=== PATIENT | female | born 1980 | race Caucasian/White ===

== ENCOUNTER 2016-09-10 17:25 | Emergency (ER) | payer MEDICAID ==
--- NOTE | 2016-09-10 18:18 | EDM.PDOC ---
ED HPI Behavioral Health - General Chief Complaint: Drug or Alcohol Abuse Stated Complaint: OVERDOSE Time Seen by Provider: 09/10/16 17:25 Source of Information: Reports: Patient, EMS, Police Exam Limitations: Reports: No limitations - History of Present Illness INITIAL COMMENTS - FREE TEXT/NARRATIVE: Patient presents, via ambulance and police, with report of taking too much Clonazepam. She usually takes one 1 mg tablet at night to sleep but has been having so much trouble getting sleep that she took 3-4 tablets three hours ago ( 3:00 pm) when she got home from work and a few more 1-1.5 hours later when she still wasn't sleeping. Altogether, she thinks she took 10 tablets. She then called her mother saying she didn't think she should be alone to sleep with that much Clonazepam. Her mother called 911 and she was brought in. She has been awake and alert. She denies any thought or intent to harm herself and insists she just wants to sleep. She started Citalopram 10 mg this morning for depression; I saw her in clinic yesterday for depression and discussed her case with her PCP and initiated Citalopram. She denied any thoughts of self harm on the depression questionaire yesterday as well. She also told the police and EMS that she doesn't want to she just wants to get some sleep. 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 ovarian cysts Psychiatric History: Reports: Depression Hematologic History: Reports: Anemia, Blood transfusion(s) - Past Surgical History Head Surgeries/Procedures: Reports: None Respiratory Surgical History: Reports: None GI Surgical History: Reports: Appendectomy, Cholecystectomy Female Surgical History: Reports: section, D&C Social & Family History - Family History Family Medical History: Noncontributory - Tobacco Use Smoking Status *Q: Current Every Day Smoker Years of Tobacco use: 10 Packs/Tins Daily: 0.5 Used Tobacco, but Quit: No Month Tobacco Last Used: September Second Hand Smoke Exposure: No - Caffeine Use Caffeine Use: Reports: Energy drinks - Alcohol Use Days Per Week of Alcohol Use: 0 - Recreational Drug Use Recreational Drug Use: No - Living Situation & Occupation Living situation: Reports: with family Occupation: employed ED ROS GENERAL - Review of Systems Review Of Systems: See Below Constitutional: Denies: fever HEENT: Reports: No symptoms Respiratory: Denies: Shortness of Breath, Wheezing, Cough Cardiovascular: Denies: Chest pain, Syncope GI/Abdominal: Denies: Abdominal pain, Diarrhea, Vomiting : Reports: no symptoms Musculoskeletal: Reports: no symptoms Skin: Reports: no symptoms Neurological: Denies: Confusion, Dizziness, Headache, Seizure, Syncope, Trouble Speaking Psychiatric: Denies: Agitation, Anxiety, Confusion ED EXAM, BEHAVIORAL HEALTH - Physical Exam Exam: See Below Exam Limited By: No limitations General Appearance: alert, WD/WN, no apparent distress Eye Exam: bilateral eye: EOMI, normal inspection, PERRL Ears: normal external exam, hearing grossly normal Nose: normal inspection Throat/Mouth: Normal inspection, Normal lips, Normal voice, No airway compromise Head: atraumatic, normocephalic Neck: full range of motion Respiratory/Chest: no respiratory distress, lungs clear, normal breath sounds, no accessory muscle use Cardiovascular: regular rate, rhythm, no murmur Extremities: normal range of motion Neurological: alert, normal mood/affect, CN II-XII intact, normal cognition, no motor/sensory deficits, oriented x 3 Psychiatric: normal cognition, oriented, depressed mood. No: incoherent, inattentive, non-communicative, poor eye contact, uncooperative, homicidal thoughts, suicidal plan, suicidal thoughts, grandiose thoughts, threatening behavior Skin Exam: Warm, Dry, Intact, Normal color, No rash COURSE, BEHAVIORAL HEALTH COMP - Course Vital Signs: Last Vital Signs Temp 96.1 F 09/10/16 17:28 Pulse 84 09/10/16 17:28 Resp 16 09/10/16 17:28 BP 135/70 09/10/16 17:28 Pulse Ox 100 09/10/16 17:28 Orders, Labs, Meds: Active Orders 24 hr Category Date Time Status DRUG SCREEN, URINE [URCHEM] Stat Lab 09/10/16 17:52 Uncollected Re-Assessment/Re-Exam: I discussed with Ethan Rhoades who confirmed that we shouldn't reverse with Flumazenil because of seizure risks. Called poison control and was informed that the peak effect is 5 hours so should be monitored for that time period. Patient is alert, awake and breathing normally and independently with sats 98% on RA. Patient consistently denies any intent to harm herself. Aliyah, who determines the necessity of admission for the [facility], talked over the phone at length with the patient, her mother, the commissioned police officer and then summarized her decision and the plan with me. She will stay with her mother over the weekend, follow up with her PCP and have phone numbers to contact the [facility] if anything psychologically worsens or she needs advice or direction. Patient has been monitored past the 5-hour point and is stable. No breathing problems. She is tired and feels ready to go home where she will spend the weekend with her mom. Pt discharged in stable condition. Departure - Departure Time of Disposition: 21:41 Disposition: Home, Self-Care 01 Condition: good Clinical Impression: Benzodiazepine (tranquilizer) overdose Qualifiers: Encounter type: initial encounter Injury intent: accidental or unintentional Qualified Code(s): T42.4X1A - Poisoning by benzodiazepines, accidental ( unintentional), initial encounter Additional Instructions: 1. Continue your Citalopram and Clonazepam as directed but no extra doses. 2. Follow the plan as you discussed with Aliyah from Behavioral Health at the [facility]. 3. Call the numbers she provided for you if you need help or advice as she directed. 4. Follow up with Dr. Maier; call Tuesday for appointment next week. 5. Return to ER if problems or concerns before you can get in to see Dr. Maier. - My Orders Last 24 Hours: My Active Orders 09/10/16 17:52 DRUG SCREEN, URINE [URCHEM] Stat - Assessment/Plan Last 24 Hours: My Active Orders 09/10/16 17:52 DRUG SCREEN, URINE [URCHEM] Stat
[2016-09-10 18:51] LABS: CHLORIDE,CL 103 mmol/L (98-115); SODIUM,NA 139 mmol/L (136-145)
[2016-09-10 18:52] LABS: ACETAMINOPHEN < 10.0 ug/mL (10.0-30.0)
[2016-09-11 02:27] VITALS: BP 126/59
== END 2016-09-10 22:00 | disposition home or self-care (01) ==
LOC: KA.ED 17:25
DX: T42.4X1A Poisoning by benzodiazepines, accidental (unintentional), initial encounter (principal); F32.9 Major depressive disorder, single episode, unspecified; F17.210 Nicotine dependence, cigarettes, uncomplicated; Z79.899 Other long term (current) drug therapy
CPT/HCPCS: 36415; 80048; 80305; 85025; 99285; G0480

== ENCOUNTER 2016-09-12 21:39 | Inpatient (IN) | payer MEDICAID ==
[2016-09-12] MEDS ORDERED: Ondansetron 4 MG/2 ML SDV IVPUSH ONE (22:15)
[2016-09-12] MEDS ORDERED: Sodium Chloride 0.9% 1,000 ML IV ONE (22:16)
--- NOTE | 2016-09-12 22:22 | EDM.PDOC ---
ED HPI GENERAL MEDICAL PROBLEM - General Chief Complaint: General Stated Complaint: POSSIBLE OD?? Time Seen by Provider: 09/12/16 22:05 Source of Information: Reports: Patient, Family (mother), Police History Limitations: Reports: No limitations - History of Present Illness INITIAL COMMENTS - FREE TEXT/NARRATIVE: PT WAS SEEN HERE ON 09/10/16 FOR SUSPECTED DRUG OVERDOSE OF CLONAZEPAM. SHE TYPICALLY TAKES THIS MEDICATION FOR SLEEP. NOT ADMITTED OR TRANSFERRED AT THAT TIME AND RELEASED HOME UNDER CARE OF MOTHER. CASE WAS DISCUSSED WITH REP FROM [facility] BUT NO ACTION WAS TAKEN. PT PRESENTS TODAY WITH DIZZINESS AND LETHARGY. ADMITS TO TAKING 7 MORE PILLS LAST NIGHT TO TRY AND SLEEP. DENIES ETOH, SOCIAL DRUGS, OR ANY OTHER MEDICATION. STATES HER FATHER LAST YEAR AND SHE IS DEPRESSED. DENIES INTENT TO HURT SELF TO ME, HOWEVER DID TELL THE AGRICULTURE LABORER SHE WANTED TO BE WITH HER FATHER. 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 ovarian cysts Psychiatric History: Reports: Depression Hematologic History: Reports: Anemia, Blood transfusion(s) - Past Surgical History Head Surgeries/Procedures: Reports: None Respiratory Surgical History: Reports: None GI Surgical History: Reports: Appendectomy, Cholecystectomy Female Surgical History: Reports: section, D&C Social & Family History - Family History Family Medical History: Noncontributory - Tobacco Use Smoking Status *Q: Current Every Day Smoker Years of Tobacco use: 10 Packs/Tins Daily: 0.5 Used Tobacco, but Quit: No Month Tobacco Last Used: September Second Hand Smoke Exposure: No - Caffeine Use Caffeine Use: Reports: Energy drinks - Alcohol Use Days Per Week of Alcohol Use: 0 - Recreational Drug Use Recreational Drug Use: No - Living Situation & Occupation Living situation: Reports: with family Occupation: employed ED ROS GENERAL - Review of Systems Review Of Systems: ROS reveals no pertinent complaints other than HPI. Constitutional: Reports: weakness HEENT: Reports: No symptoms Respiratory: Reports: No Symptoms Cardiovascular: Reports: No symptoms Endocrine: Reports: no symptoms GI/Abdominal: Reports: Nausea : Reports: no symptoms Musculoskeletal: Reports: no symptoms Skin: Reports: no symptoms Neurological: Reports: Dizziness. Denies: Headache, Trouble Speaking, Difficulty Walking, Change in Speech Psychiatric: Reports: Depression Hematologic/Lymphatic: Reports: no symptoms Immunologic: Reports: no symptoms ED EXAM, GENERAL - Physical Exam Exam: See Below Exam Limited By: No limitations General Appearance: alert, WD/WN, no apparent distress Eye Exam: bilateral eye: normal inspection Throat/Mouth: Normal inspection, Normal oropharynx, No airway compromise Head: atraumatic, normocephalic Respiratory/Chest: no respiratory distress, lungs clear, normal breath sounds, no accessory muscle use, chest non-tender Cardiovascular: regular rate, rhythm, no murmur GI/Abdominal: normal bowel sounds, soft, non tender Extremities: normal inspection, no pedal edema Neurological: alert, oriented, CN II-XII intact, normal cognition, no motor/ sensory deficits Psychiatric: depressed mood Skin Exam: Warm, Dry, Intact, Normal color, No rash Lymphatic: no adenopathy Course - Vital Signs Last Recorded V/S: Last Vital Signs Temp 97.8 F 09/12/16 21:48 Pulse 95 09/12/16 21:48 Resp 16 09/12/16 21:48 BP 132/84 09/12/16 21:48 Pulse Ox 97 09/12/16 21:48 - Orders/Labs/Meds Orders: Active Orders 24 hr Category Date Time Status CBC WITH AUTO DIFF [HEME] Stat Lab 09/12/16 22:06 Ordered COMPREHENSIVE METABOLIC PN,CMP [CHEM] Stat Lab 09/12/16 22:06 Ordered DRUG SCREEN, URINE [URCHEM] Stat Lab 09/12/16 22:10 Uncollected HCG QUANTITATIVE,SERUM [CHEM] Stat Lab 09/12/16 22:10 Ordered UA W/MICROSCOPIC [URIN] Stat Lab 09/12/16 22:06 Uncollected Ondansetron [Zofran] Med 09/12/16 22:15 Once 4 mg IVPUSH ONETIME ONE Sodium Chloride 0.9% @ 999 MLS/HR (1000ml) Med 09/12/16 22:16 Ordered Sodium Chloride 0.9% [Normal Saline] 1,000 ml IV .BOLUS - Re-Assessments/Exams Free Text/Narrative Re-Assessment/Exam: 09/12/16 23:03 PT AFEBRILE, VSS, NONTOXIC APPEARING, NOT THREATENING TO INJURE SELF. NO BEDS AVAIL AT STATE FACILITY. WILL ADMIT AND DISCUSS CASE WITH YARD BRAKEMAN AND DR Lissy ROBLERO IN AM. Departure - Departure Time of Disposition: 23:04 Disposition: Admitted As Inpatient 66 Condition: good Clinical Impression: Depression Forms: ED Department Discharge - My Orders Last 24 Hours: My Active Orders 09/12/16 22:06 CBC WITH AUTO DIFF [HEME] Stat COMPREHENSIVE METABOLIC PN,CMP [CHEM] Stat UA W/MICROSCOPIC [URIN] Stat 09/12/16 22:10 DRUG SCREEN, URINE [URCHEM] Stat HCG QUANTITATIVE,SERUM [CHEM] Stat 09/12/16 22:15 Ondansetron [Zofran] 4 mg IVPUSH ONETIME ONE 09/12/16 22:16 Sodium Chloride 0.9% @ 999 MLS/HR (1000ml) Sodium Chloride 0.9% [Normal Saline] 1,000 ml IV .BOLUS - Assessment/Plan Last 24 Hours: My Active Orders 09/12/16 22:06 CBC WITH AUTO DIFF [HEME] Stat COMPREHENSIVE METABOLIC PN,CMP [CHEM] Stat UA W/MICROSCOPIC [URIN] Stat 09/12/16 22:10 DRUG SCREEN, URINE [URCHEM] Stat HCG QUANTITATIVE,SERUM [CHEM] Stat 09/12/16 22:15 Ondansetron [Zofran] 4 mg IVPUSH ONETIME ONE 09/12/16 22:16 Sodium Chloride 0.9% @ 999 MLS/HR (1000ml) Sodium Chloride 0.9% [Normal Saline] 1,000 ml IV .BOLUS Assessment:: DEPRESSION Plan: ADMIT
[2016-09-12 22:53] LABS: CHLORIDE,CL 105 mmol/L (98-115); SODIUM,NA 142 mmol/L (136-145)
[2016-09-12] MEDS ORDERED: Sodium Chloride 0.9% 5 ML Syringe FLUSH PRN (23:00)
[2016-09-12] MEDS ORDERED: Ondansetron 4 MG Tab.DIS PO PRN (23:00)
[2016-09-13] MEDS: Nicotine 14 MG/24 Hr Patch TRDERM SCH ×2 (00:06→10:46)
[2016-09-13] MEDS ORDERED: Acetaminophen 325 MG Tab PO PRN (05:37)
[2016-09-13] MEDS ORDERED: Sodium Chloride 0.9% 1,000 ML IV SCH (05:45)
--- NOTE | 2016-09-13 09:11 | PCM.PN ---
- General Info Date of Service: 09/13/16 Admission Dx/Problem (Free Text): Overdose - Review of Systems Systems Review Comment:: Stacie was admitted last evening after taking too many clonazepam within 28 hours. She was seen in the ER on 09/10/16 after taking too many of her 0.5 mg clonazepam (10 per ER note) and she took another 7 last evening stating "I just wanted to go to sleep". She has had increased depression lately with the anniversary of her father's approaching. She was very involved in his care as he was very ill at the end. She states she has had increased trouble sleeping and has used clonazepam successfully in the past to help her sleep. When she was seen on 09/10 she did reportedly have an intake assessment done, I believe it was with the [facility], and they did not feel she was a harm to herself and she was discharged home to the care of her mother. She largely slept most of the day but then wanted to fall asleep again and could not and so that is when she took an additional 7 clonazepam. Her mother became worried about her and called law enforcement, who came out with the ambulance. They did not feel ambulance transport was necessary so she came by private vehicle to the ER for additional evaluation. Today she feels dizzy, nauseated, a little lightheaded. She states "I couldn't walk a straight line if you asked me to". She is able to answer questions but often has her eyes closed. Urine drug screen was negative for any other substances besides benzo's. She has no CP or SOB. - Patient Data Vitals - most recent: Last Vital Signs Temp 97 F 09/13/16 06:42 Pulse 79 09/13/16 06:42 Resp 18 09/13/16 06:42 BP 125/86 09/13/16 06:42 Pulse Ox 97 09/13/16 07:20 Weight - most recent: 216 lb 6.4 oz I&O - last 24 hours: Intake & Output 09/12/16 09/13/16 09/13/16 22:59 06:59 14:59 Intake Total 1300 Balance 1300 Med Orders - Current: Current Medications Acetaminophen (Tylenol) 650 mg PO Q6H PRN PRN Reason: Headache/Pain Last Admin: 09/13/16 05:54 Dose: 650 mg Sodium Chloride (Normal Saline) 1,000 mls @ 125 mls/hr IV ASDIRECTED [facility] Last Admin: 09/13/16 05:51 Dose: 125 mls/hr Nicotine (Habitrol) 14 mg TRDERM DAILY [facility] Last Admin: 09/13/16 00:06 Dose: 14 mg Ondansetron HCl (Zofran Odt) 4 mg PO Q6H PRN PRN Reason: nausea, able to take PO Last Admin: 09/13/16 02:53 Dose: 4 mg Sodium Chloride (Syrex Flush) 5 ml FLUSH Q8HR PRN PRN Reason: Keep Vein Open Last Admin: 09/13/16 05:56 Dose: 5 ml Discontinued Medications Sodium Chloride (Normal Saline) 1,000 mls @ 999 mls/hr IV .BOLUS ONE Stop: 09/12/16 23:16 Last Admin: 09/12/16 22:21 Dose: 999 mls/hr Ondansetron HCl (Zofran) 4 mg IVPUSH ONETIME ONE Stop: 09/12/16 22:16 Last Admin: 09/12/16 22:24 Dose: 4 mg - Exam General: oriented, cooperative, no acute distress, other (Sleepy, has a hard time keeping her eyes open.) Lungs: Clear to auscultation, Normal respiratory effort Cardiovascular: Regular Rate, Regular Rhythm, No Murmurs Abdomen: bowel sounds present - Problem List & Annotations (1) Depression SNOMED Code(s): 18817830 Code(s): F32.9 - MAJOR DEPRESSIVE DISORDER, SINGLE EPISODE, UNSPECIFIED Status: Acute Current Visit: Yes Qualifiers: Depression Type: major depressive disorder Active/Remission status: currently active Psychotic features: without psychotic features (2) Benzodiazepine (tranquilizer) overdose SNOMED Code(s): 319565286 Code(s): T42.4X1A - POISONING BY BENZODIAZEPINES, ACCIDENTAL, INIT Status: Acute Current Visit: No Qualifiers: Encounter type: subsequent encounter Injury intent: accidental or unintentional Qualified Code(s): T42.4X1D - Poisoning by benzodiazepines, accidental (unintentional), subsequent encounter - Problem List Review Problem List Initiated/Reviewed/Updated: Yes - Assessment Assessment:: I am working with our social services aide, Rufino Norman, to help find a place for her to have a face to face mental health evaluation. While this morning she said she is suicidal, when I questioned her more about this and her statement that " I just want to go be with my dad" who has . She becomes tearful and states "that is what I said". Her mother also questioned her about this and told me that Stacie said to her that "I know my girls will be well taken care of" . She needs additional psychiatric evaluation with possible inpatient treatment vs. partial hospitalization. Patient was amenable to this, her mother is also OK with this and is able to care for her children if she would need to be admitted at a different facility. Her depression is so severe and with her taking an overdose within 48 hours of her initial event I feel she is not safe to return to her home environment as this happened with her mother keeping watch over her.
--- NOTE | 2016-09-13 11:17 | PCM.DCSUM1 ---
Discharge Summary - Hospital Course Free Text/Narrative:: Stacie was admitted last evening after taking too many clonazepam within 28 hours. She was seen in the ER on 09/10/16 after taking too many of her 0.5 mg clonazepam (10 per ER note) and she took another 7 last evening stating "I just wanted to go to sleep". She has had increased depression lately with the anniversary of her father's approaching. She was very involved in his care as he was very ill at the end. She states she has had increased trouble sleeping and has used clonazepam successfully in the past to help her sleep. When she was seen on 09/10 she did reportedly have an intake assessment done, I believe it was with the [facility], and they did not feel she was a harm to herself and she was discharged home to the care of her mother. She largely slept most of the day but then wanted to fall asleep again and could not and so that is when she took an additional 7 clonazepam. Her mother became worried about her and called law enforcement, who came out with the ambulance. They did not feel ambulance transport was necessary so she came by private vehicle to the ER for additional evaluation. Today she feels dizzy, nauseated, a little lightheaded. She states "I couldn't walk a straight line if you asked me to". She is able to answer questions but often has her eyes closed. Urine drug screen was negative for any other substances besides benzo's. She has no CP or SOB. Social work was able to assist with getting her an evaluation at [facility] ER with Dr. Burleson as the accepting provider. Note were faxed to him. Patient is going to leave with her mother, who will drive her to [place] to the ER for evaluation. I will write a note excusing her from work at her request. She works at [employer] in [employer]. - Discharge Data Discharge Date: 09/13/16 Discharge Disposition: DC/Tfer to Acute Hospital 02 Condition: Stable - Discharge Diagnosis/Problem(s) (1) Depression SNOMED Code(s): 91004855 ICD Code: F32.9 - MAJOR DEPRESSIVE DISORDER, SINGLE EPISODE, UNSPECIFIED Status: Acute Current Visit: Yes Qualifiers: Depression Type: major depressive disorder Active/Remission status: currently active Psychotic features: without psychotic features (2) Benzodiazepine (tranquilizer) overdose SNOMED Code(s): 599897395 ICD Code: T42.4X1A - POISONING BY BENZODIAZEPINES, ACCIDENTAL, INIT Status : Acute Current Visit: No Qualifiers: Encounter type: subsequent encounter Injury intent: accidental or unintentional Qualified Code(s): T42.4X1D - Poisoning by benzodiazepines, accidental (unintentional), subsequent encounter - Discharge Plan Home Medications: Home Meds Citalopram Hydrobromide [Citalopram HBr] 1 tab PO DAILY 09/10/16 [History] Forms: ED Department Discharge Referrals: Amaury Garcia [Outside] Livier Barnes MD [Primary Care Provider] - - General Info Date of Service: 09/13/16 Admission Dx/Problem (Free Text: Overdose - Review of Systems Systems Review Comment: See HPI. - Patient Data Vitals - Most Recent: Last Vital Signs Temp 97.4 F 09/13/16 11:00 Pulse 85 09/13/16 11:00 Resp 12 09/13/16 11:00 BP 106/64 09/13/16 11:00 Pulse Ox 95 09/13/16 11:00 Weight - Most Recent: 216 lb 6.4 oz I&O - Last 24 hours: Intake & Output 09/12/16 09/13/16 09/13/16 22:59 06:59 14:59 Intake Total 1300 Balance 1300 Med Orders - Current: Current Medications Acetaminophen (Tylenol) 650 mg PO Q6H PRN PRN Reason: Headache/Pain Last Admin: 09/13/16 05:54 Dose: 650 mg Sodium Chloride (Normal Saline) 1,000 mls @ 125 mls/hr IV ASDIRECTED [facility] Last Admin: 09/13/16 05:51 Dose: 125 mls/hr Nicotine (Habitrol) 14 mg TRDERM DAILY [facility] Last Admin: 09/13/16 10:46 Dose: Not Given Ondansetron HCl (Zofran Odt) 4 mg PO Q6H PRN PRN Reason: nausea, able to take PO Last Admin: 09/13/16 02:53 Dose: 4 mg Sodium Chloride (Syrex Flush) 5 ml FLUSH Q8HR PRN PRN Reason: Keep Vein Open Last Admin: 09/13/16 05:56 Dose: 5 ml Discontinued Medications Sodium Chloride (Normal Saline) 1,000 mls @ 999 mls/hr IV .BOLUS ONE Stop: 09/12/16 23:16 Last Admin: 09/12/16 22:21 Dose: 999 mls/hr Ondansetron HCl (Zofran) 4 mg IVPUSH ONETIME ONE Stop: 09/12/16 22:16 Last Admin: 09/12/16 22:24 Dose: 4 mg - Exam General: Reports: oriented, cooperative, other (Sleepy) Lungs: Reports: Clear to auscultation, Normal respiratory effort Cardiovascular: Reports: Regular Rate, Regular Rhythm, No Murmurs *Q Meaningful Use (DIS) - VTE *Q VTE Criteria *Q: - Stroke *Q Stroke Criteria *Q: - AMI *Q AMI Criteria *Q:
[2016-09-13 11:18] VITALS: BP 106/64
== END 2016-09-13 12:00 | DRG 918 ==
LOC: KA.ED 21:39 → KA.MS 22:54
PROVIDERS: ADMIT Physician Assistant Surgical; ATTEND Internal Medicine
DX: T42.4X1A Poisoning by benzodiazepines, accidental (unintentional), initial encounter (principal); R45.851 Suicidal ideations; Y92.019 Unspecified place in single-family (private) house as the place of occurrence of the external cause; F32.9 Major depressive disorder, single episode, unspecified; F17.200 Nicotine dependence, unspecified, uncomplicated; Z79.899 Other long term (current) drug therapy
CPT/HCPCS: 36415; 80053; 80305; 81001; 84702; 85025; 96361; 96374; 99285; A9270-GY; J2405; J7030

== ENCOUNTER 2016-12-31 09:25 | Emergency (ER) | payer MEDICAID ==
[2016-12-31 09:40] VITALS: BP 89/52
[2016-12-31] MEDS ORDERED: Ondansetron 4 MG Tab.DIS PO ONE (10:20)
[2016-12-31 10:32] LABS: CHLORIDE,CL 105 mmol/L (98-115); SODIUM,NA 141 mmol/L (136-145)
--- NOTE | 2016-12-31 10:37 | EDM.PDOC ---
ED HPI GENERAL MEDICAL PROBLEM - General Chief Complaint: Neurological Problem Stated Complaint: dizziness Time Seen by Provider: 12/31/16 10:10 Source of Information: Reports: Patient History Limitations: Reports: No Limitations - History of Present Illness INITIAL COMMENTS - FREE TEXT/NARRATIVE: Patient presents with low back pain and vertigo after falling at work 2 hours ago. 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 She controlled the fall and wasn't completely unconscious (no loss of bowel/bladder function). She could hear voices of others and was helped by a co-worker. She got up after about 45 seconds and noticed dizziness/spinning along with blurry vision (she describes as objects moving or spinning) with head movement. She denies hitting her head and has no pain except in her low back. She denies back pain or dizziness/spinning prior to the fall at 0800 this morning. 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 ovarian cysts Psychiatric History: Reports: Depression Endocrine/Metabolic History: Reports: Obesity/BMI 30+ Hematologic History: Reports: Anemia, Blood Transfusion(s) - Infectious Disease History Infectious Disease History: Reports: None - Past Surgical History Head Surgeries/Procedures: Reports: None HEENT Surgical History: Reports: Oral Surgery, Tonsillectomy GI Surgical History: Reports: Appendectomy, Cholecystectomy Female Surgical History: Reports: Section, Cystectomy, D&C Endocrine Surgical History: Reports: None Social & Family History - Family History Family Medical History: Noncontributory - Tobacco Use Smoking Status *Q: Current Every Day Smoker Years of Tobacco use: 6 Packs/Tins Daily: 1 Used Tobacco, but Quit: No Month Tobacco Last Used: September Second Hand Smoke Exposure: Yes - Caffeine Use Caffeine Use: Reports: Soda Other Caffeine Use: ice tea and diet coke - Alcohol Use Days Per Week of Alcohol Use: 0 - Recreational Drug Use Recreational Drug Use: No - Living Situation & Occupation Living situation: Reports: with Family Occupation: Employed ED ROS GENERAL - Review of Systems Review Of Systems: See Below Constitutional: Denies: Fever, Chills, Weakness HEENT: Reports: Vertigo. Denies: Ear Pain, Hearing Loss (no ringing), Throat Pain Respiratory: Denies: Shortness of Breath, Cough Cardiovascular: Reports: Lightheadedness, Syncope. Denies: Chest Pain, Blood Pressure Problem Endocrine: Denies: Fatigue, Polydypsia, Polyuria GI/Abdominal: Reports: Nausea. Denies: Abdominal Pain, Anorexia, Diarrhea, Difficulty Swallowing, Stool Incontinence, Vomiting : Denies: Dysuria, Flank Pain, Frequency, Incontinence Musculoskeletal: Denies: Neck Pain, Shoulder Pain, Arm Pain Skin: Denies: Cyanosis, Jaundice, Mottled, Pallor, Diaphoresis Neurological: Reports: Dizziness, Syncope. Denies: Confusion, Headache, Numbness, Paresthesia, Pre-Existing Deficit, Seizure, Tingling, Trouble Speaking , Weakness, Change in Speech Psychiatric: Denies: Agitation, Anxiety, Confusion ED EXAM, NEURO - Physical Exam Exam: See Below Exam Limited By: No Limitations General Appearance: Alert, WD/WN, No Apparent Distress Eye Exam: Bilateral Eye: Abnormal EOM (some nystagmus was lateral movement but full motion is present), EOMI, Normal Inspection, Nystagmus, PERRL Ears: Normal External Exam, Normal Canal, Hearing Grossly Normal, Normal TMs Nose: Normal Inspection, No Blood Throat/Mouth: Normal Inspection, Normal Lips, Normal Oropharynx, Normal Voice, No Airway Compromise Head Exam: Atraumatic, Normocephalic Neck: Normal Inspection, Supple, Non-Tender, Full Range of Motion Respiratory/Chest: No Respiratory Distress, Lungs Clear, Normal Breath Sounds, No Accessory Muscle Use Cardiovascular: Normal Peripheral Pulses, Regular Rate, Rhythm, No Edema, No Gallop, No Murmur GI/Abdominal: Normal Bowel Sounds, Soft, Non-Tender, No Organomegaly, No Distention Neurological: Alert, Normal Mood/Affect, Normal Dorsiflexion, CN II-XII Intact, Normal Plantar Flexion, No Motor/Sensory Deficits, Oriented x 3, Other ([facility] [place] test is significant in producing vertigo and nystagmus worse to the right.) Back Exam: Full Range of Motion, Paraspinal Tenderness (across the low back hand to palpation; worse on right.). No: CVA Tenderness (L), CVA Tenderness ( R), Vertebral Tenderness Extremities: Normal Inspection, Normal Range of Motion, Non-Tender, No Pedal Edema Psychiatric: Normal Affect, Normal Mood Skin Exam: Warm, Dry, Intact, Normal Color, No Rash Course - Vital Signs Last Recorded V/S: Last Vital Signs Temp 97.5 F 12/31/16 09:34 Pulse 58 L 12/31/16 09:34 Resp 18 12/31/16 09:34 BP 89/52 L 12/31/16 09:34 Pulse Ox 99 12/31/16 09:34 Orthostatic Blood Pressure [ 127/80 Standing] Orthostatic Blood Pressure [ 122/76 Sitting] Orthostatic Blood Pressure [ 108/78 Supine] - Orders/Labs/Meds Orders: Active Orders 24 hr Category Date Time Status EKG Documentation Completion [RC] ASDIRECTED Care 12/31/16 09:51 Active Orthostatic Vital Signs [RC] ASDIRECTED Care 12/31/16 09:56 Active BASIC METABOLIC PANEL,BMP [CHEM] Stat Lab 12/31/16 10:00 Received URINALYSIS W/MICROSCOPIC [UA W/MICROSCOPIC] [URIN] Stat Lab 12/31/16 09:51 Ordered EKG 12 Lead [EK] Routine Ther 12/31/16 09:50 Ordered Labs: Laboratory Tests 12/31/16 12/31/16 Range/Units 09:51 10:00 WBC 7.1 (5.0-10.0) 10^3/uL RBC 4.39 (3.80-5.50) 10^6/uL Hgb 13.2 (12.0-16.0) g/dL Hct 38.1 (37.0-47.0) % MCV 86.9 (82.0-92.0) fL MCH 30.1 (27.0-31.0) pg MCHC 34.7 (32.0-36.0) g/dL RDW 13.1 (11.5-14.5) % Plt Count 224 (150-300) 10^3/uL MPV 8.5 (7.4-10.4) fL Neut % (Auto) 66.8 (50.0-70.0) % Lymph % (Auto) 21.6 (20.0-40.0) % [place] % (Auto) 5.8 (2.0-8.0) % Eos % (Auto) 5.1 H (1.0-3.0) % Baso % (Auto) 0.7 (0.0-1.0) % Neut # (Auto) 4.8 (2.5-7.0) 10^3/uL Lymph # (Auto) 1.5 (1.0-4.0) 10^3/uL [place] # (Auto) 0.4 (0.1-0.8) 10^3/uL Eos # (Auto) 0.4 H (0.1-0.3) 10^3/uL Baso # (Auto) 0.0 (0.0-0.1) 10^3/uL Urine Color Yellow (YELLOW) Urine Appearance Slightly cloudy H (CLEAR) Urine pH 5.5 (5.0-9.0) Ur Specific [place] <= 1.005 (1.005-1.030) Urine Protein Negative (NEGATIVE) mg/dL Urine Glucose (UA) Negative (NEGATIVE) mg/dL Urine Ketones Negative (NEGATIVE) mg/dL Urine Occult Blood Trace-intact H (NEGATIVE) Urine Nitrite Negative (NEGATIVE) Urine Bilirubin Negative (NEGATIVE) Urine Urobilinogen 0.2 (0.2-1.0) E.U./dL Ur Leukocyte Esterase Trace H (NEGATIVE) - Re-Assessments/Exams Free Text/Narrative Re-Assessment/Exam: 12/31/16 11:38 Orthostatic pressures are stable. Patient feeling better after Zofran. Waiting on head CT currently. Discussed Trichomonasis result with pt and will treat for that along with empiric treatment for GC/Chlam today. Tested for GC/ Chlam from urine today and sent out. Results will be sent to Dr. Maier, pt's PCP. I discussed this with Dr. Maier also, with pt's permission. Patient states she has had no sexual contact since June and is no longer in a relationship with that partner. She will inform him of this result and recommendation that he get tested. Pt will discuss further STD testing with her PCP next week. Patient denies any vaginal drainage, lesions, pain or any other symptoms now or at any time. She denies any history of STDs. 12/31/16 11:[address] is negative for any acute process. Discussed results with patient and she will return at 1300 for her [employer] Maneuver. Pt's mother will drive her. Patient discharged in stable condition. 12/31/16 11:58 Patient was given info on BPPV prior to discharge. Departure - Departure Time of Disposition: 11:50 Disposition: Home, Self-Care 01 Condition: Good Clinical Impression: Trichomoniasis, urogenital BPPV (benign paroxysmal positional vertigo) Qualifiers: Laterality: right Qualified Code(s): H81.11 - Benign paroxysmal vertigo, right ear Lumbar strain Qualifiers: Encounter type: initial encounter Qualified Code(s): S39.012A - Strain of muscle, fascia and tendon of lower back, initial encounter - Discharge Information Forms: ED Department Discharge Additional Instructions: 1. Avoid driving until the dizziness and vertigo have settle down. 2. Go to PT for Wilbert Maneuver at 1:00 today. 3. Follow up with Dr. Maier next week for test results and to discuss any further testing she recommends. 4. Take Ibuprofen 600mg every 8 hours as needed for the back pain. Wait at least 12 hours after the Toradol in ER to begin this. 5. You can take Tylenol 500-650 every 8 hours as needed for the back pain also. 6. Return to ER as needed. - My Orders Last 24 Hours: My Active Orders 12/31/16 09:50 EKG 12 Lead [EK] Routine 12/31/16 09:51 EKG Documentation Completion [RC] ASDIRECTED URINALYSIS W/MICROSCOPIC [UA W/MICROSCOPIC] [URIN] Stat 12/31/16 09:56 Orthostatic Vital Signs [RC] ASDIRECTED 12/31/16 10:00 BASIC METABOLIC PANEL,BMP [CHEM] Stat - Assessment/Plan Last 24 Hours: My Active Orders 12/31/16 09:50 EKG 12 Lead [EK] Routine 12/31/16 09:51 EKG Documentation Completion [RC] ASDIRECTED URINALYSIS W/MICROSCOPIC [UA W/MICROSCOPIC] [URIN] Stat 12/31/16 09:56 Orthostatic Vital Signs [RC] ASDIRECTED 12/31/16 10:00 BASIC METABOLIC PANEL,BMP [CHEM] Stat
[2016-12-31] MEDS ORDERED: Ketorolac 60 MG/2 ML SDV IM ONE (10:40)
[2016-12-31] MEDS ORDERED: Azithromycin 250 MG Tab PO ONE (11:37)
[2016-12-31] MEDS ORDERED: metroNIDAZOLE 500 MG Tab PO ONE (11:37)
== END 2016-12-31 12:00 | disposition home or self-care (01) ==
LOC: KA.ED 09:25
DX: S39.012A Strain of muscle, fascia and tendon of lower back, initial encounter (principal); H81.11 Benign paroxysmal vertigo, right ear; A59.00 Urogenital trichomoniasis, unspecified; F32.9 Major depressive disorder, single episode, unspecified; F17.210 Nicotine dependence, cigarettes, uncomplicated; E66.9 Obesity, unspecified; Z86.2 Personal history of diseases of the blood and blood-forming organs and certain disorders involving the immune mechanism; Z90.49 Acquired absence of other specified parts of digestive tract; Z98.890 Other specified postprocedural states; Z79.899 Other long term (current) drug therapy; X50.0XXA Overexertion from strenuous movement or load, initial encounter; Y99.0 Civilian activity done for income or pay
CPT/HCPCS: 36415; 70450; 80048; 81001; 81025; 85025; 87491; 87591; 93005; 96372; 99284; A9270; J1885

== ENCOUNTER 2017-08-04 09:20 | Observation (INO) | payer BC ==
[2017-08-04] MEDS ORDERED: Nitroglycerin 0.4 MG Tab.SL ONE (09:27)
[2017-08-04] MEDS ORDERED: Aspirin 81 MG Tab.Chew ONE (09:27)
[2017-08-04] MEDS ORDERED: Sodium Chloride 0.9% 5 ML Syringe FLUSH PRN ×2 (09:42→10:25)
[2017-08-04] MEDS: Nitroglycerin 0.4 MG Tab.SL SL PRN ×2 (09:50→10:00)
[2017-08-04] MEDS ORDERED: Aspirin 81 MG Tab.Chew PO ONE (09:57)
--- NOTE | 2017-08-04 10:00 | EDM.PDOC ---
ED HPI GENERAL MEDICAL PROBLEM - General Chief Complaint: Chest Pain Stated Complaint: CP Time Seen by Provider: 08/04/17 09:35 Source of Information: Reports: Patient History Limitations: Reports: No Limitations - History of Present Illness INITIAL COMMENTS - FREE TEXT/NARRATIVE: 36 YO WF presents to ER complaining of left sided chest pain which began 1 hour ago while at work. Pt reports associated lightheadedness. Pt denies any previous history of chest pain. Pt denies diaphoresis, nausea, shortness of breath of nausea/vomiting. Pt denies any recent illness. Pt reports tobacco use 1/2 pack per day. Onset: Today Duration: Hour(s): (1) Location: Reports: Chest Quality: Reports: Pressure Severity: Mild Improves with: Reports: None Worsens with: Reports: None Associated Symptoms: Reports: Chest Pain. 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 ovarian cysts Psychiatric History: Reports: Depression Endocrine/Metabolic History: Reports: Obesity/BMI 30+ Hematologic History: Reports: Anemia, Blood Transfusion(s) - Infectious Disease History Infectious Disease History: Reports: None - Past Surgical History Head Surgeries/Procedures: Reports: None HEENT Surgical History: Reports: Oral Surgery, Tonsillectomy GI Surgical History: Reports: Appendectomy, Cholecystectomy Female Surgical History: Reports: Section, Cystectomy, D&C Endocrine Surgical History: Reports: None Social & Family History - Family History Family Medical History: Noncontributory - Tobacco Use Smoking Status *Q: Current Every Day Smoker Years of Tobacco use: 6 Packs/Tins Daily: 1 Used Tobacco, but Quit: No Month Tobacco Last Used: September Second Hand Smoke Exposure: Yes - Caffeine Use Caffeine Use: Reports: Soda Other Caffeine Use: ice tea and diet coke - Alcohol Use Days Per Week of Alcohol Use: 0 - Recreational Drug Use Recreational Drug Use: No - Living Situation & Occupation Living situation: Reports: with Family Occupation: Employed ED ROS GENERAL - Review of Systems Review Of Systems: See Below Constitutional: Reports: No Symptoms HEENT: Reports: No Symptoms Respiratory: Reports: No Symptoms Cardiovascular: Reports: Chest Pain, Lightheadedness Endocrine: Reports: No Symptoms GI/Abdominal: Reports: No Symptoms : Reports: No Symptoms Musculoskeletal: Reports: No Symptoms Skin: Reports: No Symptoms Neurological: Reports: No Symptoms Psychiatric: Reports: No Symptoms Hematologic/Lymphatic: Reports: No Symptoms Immunologic: Reports: No Symptoms ED EXAM, GENERAL - Physical Exam Exam: See Below Exam Limited By: No Limitations General Appearance: Alert, WD/WN, No Apparent Distress Eye Exam: Bilateral Eye: EOMI, PERRL Neck: Normal Inspection, Supple, Non-Tender, Full Range of Motion Respiratory/Chest: No Respiratory Distress, Lungs Clear, Normal Breath Sounds, No Accessory Muscle Use, Chest Non-Tender Cardiovascular: Normal Peripheral Pulses, Regular Rate, Rhythm, No Edema, No Gallop, No JVD, No Murmur, No Rub GI/Abdominal: Normal Bowel Sounds, Soft, Non-Tender, No Organomegaly, No Distention, No Abnormal Bruit, No Mass Back Exam: Normal Inspection, Full Range of Motion, NT Extremities: Normal Inspection, Normal Range of Motion, Non-Tender, Normal Capillary Refill, No Pedal Edema Neurological: Alert, Oriented, CN II-XII Intact, Normal Cognition, Normal Gait, Normal Reflexes, No Motor/Sensory Deficits Psychiatric: Normal Affect, Normal Mood Skin Exam: Warm, Dry, Intact, Normal Color, No Rash Lymphatic: No Adenopathy EKG INTERPRETATION EKG Date: 08/04/17 Time: 09:29 Rhythm: NSR Rate (Beats/Min): 66 [place]: Normal P-Wave: Present QRS: Normal ST-T: Normal QT: Normal Comparison: NA - No Prior EKG Course - Vital Signs Last Recorded V/S: Last Vital Signs Temp 37.1 C 08/04/17 09:38 Pulse 67 08/04/17 09:38 Resp 12 08/04/17 09:38 BP 112/54 L 08/04/17 10:00 Pulse Ox 99 08/04/17 09:38 - Orders/Labs/Meds Orders: Active Orders 24 hr Category Date Time Status Patient Status Manage Transfer [TRANSFER] Routine ADT 08/04/17 10:24 Ordered Patient Status [ADT] Routine ADT 08/04/17 10:25 Ordered Bedrest Bathroom Privileges [RC] ASDIRECTED Care 08/04/17 10:25 Ordered Cardiac Monitoring [RC] CONTINUOUS Care 08/04/17 10:26 Ordered EKG Documentation Completion [RC] ASDIRECTED Care 08/04/17 09:42 Active Oxygen Therapy [RC] PRN Care 08/04/17 10:25 Ordered Peripheral IV Care [RC] . DIRECTED Care 08/04/17 09:42 Active VTE/DVT Education [RC] PER UNIT ROUTINE Care 08/04/17 10:25 Ordered Vital Signs [RC] Q4H Care 08/04/17 10:25 Ordered 2 Gram Sodium Diet [DIET] Diet 08/04/17 Lunch Active Chest 1V Frontal [CR] Stat Exams 08/04/17 09:42 Taken BASIC METABOLIC PANEL,BMP [CHEM] AM Lab 08/05/17 05:11 Ordered CBC WITH AUTO DIFF [HEME] AM Lab 08/05/17 05:11 Ordered MAGNESIUM [CHEM] AM Lab 08/05/17 05:11 Ordered TROPONIN I [CHEM] AM Lab 08/05/17 05:11 Ordered TROPONIN I [CHEM] Routine Lab 08/04/17 16:00 Ordered TROPONIN I [CHEM] Timed Lab 08/04/17 22:00 Ordered Aspirin [Ecotrin] Med 08/05/17 09:00 Ordered 325 mg PO DAILY Nicotine [Habitrol] Med 08/04/17 10:30 Ordered 14 mg TRDERM DAILY Nitroglycerin [Nitro-Bid 2%] Med 08/04/17 10:28 Ordered 1 gm TOP Q6H PRN Nitroglycerin [Nitrostat] Med 08/04/17 09:48 Active 0.4 mg SL Q5M PRN Sodium Chloride 0.9% [Normal Saline] 1,000 ml Med 08/04/17 10:13 Active IV .BOLUS Sodium Chloride 0.9% [Syrex Flush] Med 08/04/17 09:42 Active 5 ml FLUSH Q8HR PRN Sodium Chloride 0.9% [Syrex Flush] Med 08/04/17 10:25 Ordered 5 ml FLUSH Q8HR PRN Peripheral IV Insertion Adult [OM.PC] Routine Oth 08/04/17 09:42 Ordered Saline Lock Insert [OM.PC] Routine Oth 08/04/17 10:25 Ordered Resuscitation Status Routine Resus Stat 08/04/17 10:25 Ordered EKG 12 Lead [EK] Routine Ther 08/04/17 09:42 Ordered Medication Orders Sodium Chloride (Normal Saline) 1,000 mls @ 999 mls/hr IV .BOLUS ONE Stop: 08/04/17 11:13 Last Admin: 08/04/17 10:16 Dose: 999 mls/hr Nitroglycerin (Nitrostat) 0.4 mg SL Q5M PRN PRN Reason: Chest Pain Last Admin: 08/04/17 10:00 Dose: 0.4 mg Admin: 08/04/17 09:50 Dose: 0.4 mg Sodium Chloride (Syrex Flush) 5 ml FLUSH Q8HR PRN PRN Reason: Keep Vein Open Labs: Laboratory Tests 08/04/17 08/04/17 Range/Units 09:35 09:35 WBC 8.6 (5.0-10.0) 10^3/uL RBC 4.13 (3.80-5.50) 10^6/uL Hgb 12.6 (12.0-16.0) g/dL Hct 38.0 (37.0-47.0) % MCV 91.9 D (82.0-92.0) fL MCH 30.4 (27.0-31.0) pg MCHC 33.1 (32.0-36.0) g/dL RDW 12.5 (11.5-14.5) % Plt Count 202 (150-300) 10^3/uL MPV 8.9 (7.4-10.4) fL Neut % (Auto) 71.2 H (50.0-70.0) % Lymph % (Auto) 20.5 (20.0-40.0) % [place] % (Auto) 6.6 (2.0-8.0) % Eos % (Auto) 1.1 (1.0-3.0) % Baso % (Auto) 0.6 (0.0-1.0) % Neut # (Auto) 6.0 (2.5-7.0) 10^3/uL Lymph # (Auto) 1.8 (1.0-4.0) 10^3/uL [place] # (Auto) 0.6 (0.1-0.8) 10^3/uL Eos # (Auto) 0.1 (0.1-0.3) 10^3/uL Baso # (Auto) 0.1 (0.0-0.1) 10^3/uL Sodium 148 H (136-145) mmol/L Potassium 3.7 (3.3-5.3) mmol/L Chloride 110 (98-115) mmol/L Carbon Dioxide 26.8 (21.0-32.0) mmol/L BUN 15 (6-25) mg/dL Creatinine 0.93 (0.51-1.17) mg/dL Est Cr Clr Drug Dosing 68.51 mL/min Estimated GFR (MDRD) > 60 mL/min Glucose 99 (70-110) mg/dL Calcium 9.1 (8.7-10.3) mg/dL Total Bilirubin 0.3 (0.2-1.0) mg/dL AST 14 L (15-37) U/L ALT 30 (12-78) U/L Alkaline Phosphatase 68 (46-116) IU/L Creatine Kinase 92 (26-276) U/L CK-MB (CK-2) < 0.50 (0.00-4.30) ng/mL Troponin I < 0.04 (0.00-0.070) ng/mL Total Protein 7.1 (6.4-8.2) g/dL Albumin 4.15 (3.00-4.80) g/dL Meds: Medications Generic Name Dose Route Start Last Admin Trade Name Freq PRN Reason Stop Dose Admin Sodium Chloride 1,000 mls @ 999 mls/hr 08/04/17 10:13 08/04/17 10:16 Normal Saline IV 08/04/17 11:13 999 mls/hr .BOLUS ONE Administration Nitroglycerin 0.4 mg 08/04/17 09:48 08/04/17 10:00 Nitrostat SL 0.4 mg Q5M PRN Administration Chest Pain Sodium Chloride 5 ml 08/04/17 09:42 Syrex Flush FLUSH Q8HR PRN Keep Vein Open Discontinued Medications Generic Name Dose Route Start Last Admin Trade Name Keeq PRN Reason Stop Dose Admin Aspirin Confirm 08/04/17 09:27 08/04/17 09:49 Aspirin Administered 08/04/17 09:28 Not Given Dose 324 mg .ROUTE .STK-MED ONE Aspirin 324 mg 08/04/17 09:57 08/04/17 09:58 Aspirin PO 08/04/17 09:58 324 mg ONETIME ONE Administration Nitroglycerin Confirm 08/04/17 09:27 08/04/17 09:49 Nitrostat Administered 08/04/17 09:28 Not Given Dose 0.4 mg .ROUTE .STK-MED ONE Nitroglycerin 1 gm 08/04/17 10:13 08/04/17 10:15 Nitro-Bid 2% TOP 08/04/17 10:14 1 gm ONETIME ONE Administration Nitroglycerin Confirm 08/04/17 10:13 08/04/17 10:21 Nitro-Bid 2% Administered 08/04/17 10:14 Not Given Dose 1 gm .ROUTE .STK-MED ONE - Radiology Interpretation Free Text/Narrative:: CXR- NAD Departure - Departure Time of Disposition: 10:22 Disposition: Refer to Observation Condition: Fair Clinical Impression: Chest pain Qualifiers: Chest pain type: unspecified Qualified Code(s): R07.9 - Chest pain, unspecified Referrals: Livier Barnes MD [Primary Care Provider] - Forms: ED Department Discharge - My Orders Last 24 Hours: My Active Orders 08/04/17 09:42 EKG Documentation Completion [RC] ASDIRECTED Peripheral IV Care [RC] . DIRECTED Chest 1V Frontal [CR] Stat Sodium Chloride 0.9% [Syrex Flush] 5 ml FLUSH Q8HR PRN Peripheral IV Insertion Adult [OM.PC] Routine EKG 12 Lead [EK] Routine 08/04/17 09:48 Nitroglycerin [Nitrostat] 0.4 mg SL Q5M PRN 08/04/17 10:13 Sodium Chloride 0.9% [Normal Saline] 1,000 ml IV .BOLUS 08/04/17 10:24 Patient Status Manage Transfer [TRANSFER] Routine 08/04/17 10:25 Patient Status [ADT] Routine Bedrest Bathroom Privileges [RC] ASDIRECTED Oxygen Therapy [RC] PRN VTE/DVT Education [RC] PER UNIT ROUTINE Vital Signs [RC] Q4H Sodium Chloride 0.9% [Syrex Flush] 5 ml FLUSH Q8HR PRN Saline Lock Insert [OM.PC] Routine Resuscitation Status Routine 08/04/17 10:26 Cardiac Monitoring [RC] CONTINUOUS 08/04/17 10:28 Nitroglycerin [Nitro-Bid 2%] 1 gm TOP Q6H PRN 08/04/17 10:30 Nicotine [Habitrol] 14 mg TRDERM DAILY 08/04/17 16:00 TROPONIN I [CHEM] Routine 08/04/17 22:00 TROPONIN I [CHEM] Timed 08/04/17 Lunch 2 Gram Sodium Diet [DIET] 08/05/17 05:11 BASIC METABOLIC PANEL,BMP [CHEM] AM CBC WITH AUTO DIFF [HEME] AM MAGNESIUM [CHEM] AM TROPONIN I [CHEM] AM 08/05/17 09:00 Aspirin [Ecotrin] 325 mg PO DAILY - Assessment/Plan Last 24 Hours: My Active Orders 08/04/17 09:42 EKG Documentation Completion [RC] ASDIRECTED Peripheral IV Care [RC] . DIRECTED Chest 1V Frontal [CR] Stat Sodium Chloride 0.9% [Syrex Flush] 5 ml FLUSH Q8HR PRN Peripheral IV Insertion Adult [OM.PC] Routine EKG 12 Lead [EK] Routine 08/04/17 09:48 Nitroglycerin [Nitrostat] 0.4 mg SL Q5M PRN 08/04/17 10:13 Sodium Chloride 0.9% [Normal Saline] 1,000 ml IV .BOLUS 08/04/17 10:24 Patient Status Manage Transfer [TRANSFER] Routine 08/04/17 10:25 Patient Status [ADT] Routine Bedrest Bathroom Privileges [RC] ASDIRECTED Oxygen Therapy [RC] PRN VTE/DVT Education [RC] PER UNIT ROUTINE Vital Signs [RC] Q4H Sodium Chloride 0.9% [Syrex Flush] 5 ml FLUSH Q8HR PRN Saline Lock Insert [OM.PC] Routine Resuscitation Status Routine 08/04/17 10:26 Cardiac Monitoring [RC] CONTINUOUS 08/04/17 10:28 Nitroglycerin [Nitro-Bid 2%] 1 gm TOP Q6H PRN 08/04/17 10:30 Nicotine [Habitrol] 14 mg TRDERM DAILY 08/04/17 16:00 TROPONIN I [CHEM] Routine 08/04/17 22:00 TROPONIN I [CHEM] Timed 08/04/17 Lunch 2 Gram Sodium Diet [DIET] 08/05/17 05:11 BASIC METABOLIC PANEL,BMP [CHEM] AM CBC WITH AUTO DIFF [HEME] AM MAGNESIUM [CHEM] AM TROPONIN I [CHEM] AM 08/05/17 09:00 Aspirin [Ecotrin] 325 mg PO DAILY Assessment:: 1. Chest pain Plan: 1. admit for 23 hour obs 2. ASA/Nitro 3. repeat trop I Q6 4. supportive care
[2017-08-04] MEDS ORDERED: Sodium Chloride 0.9% 1,000 ML IV ONE (10:13)
[2017-08-04] MEDS ORDERED: Nitroglycerin 2% Oint 1 GM UD Packet ONE (10:13)
[2017-08-04] MEDS ORDERED: Nitroglycerin 2% Oint 1 GM UD Packet TOP ONE (10:13)
[2017-08-04 10:14] LABS: CHLORIDE,CL 110 mmol/L (98-115); SODIUM,NA 148 mmol/L (136-145)
[2017-08-04] MEDS ORDERED: Nitroglycerin 2% Oint 1 GM UD Packet TOP PRN (10:28)
[2017-08-04] MEDS: Nicotine 14 MG/24 Hr Patch TRDERM SCH (11:30)
[2017-08-04] MEDS ORDERED: EPINEPHrine 1:10,000 1 MG/10 ML Syringe IVPUSH PRN (13:41)
[2017-08-04] MEDS ORDERED: Atropine 0.1 MG/ML 10 ML Syringe IVPUSH PRN (13:41)
[2017-08-04] MEDS ORDERED: Nitroglycerin 0.4 MG Tab.SL SL PRN (13:41)
[2017-08-04] MEDS ORDERED: Lidocaine 2% 100 MG/5 ML Syringe IVPUSH PRN (13:41)
[2017-08-04] MEDS ORDERED: Ketorolac 30 MG/ML SDV IVPUSH PRN (14:37)
[2017-08-04] MEDS ORDERED: Morphine 2 MG/ML Syringe IVPUSH PRN (14:38)
[2017-08-04] MEDS ORDERED: Zolpidem 5 MG Tab PO PRN (14:40)
[2017-08-04] MEDS ORDERED: Acetaminophen 500 MG Tab PO PRN (18:03)
[2017-08-05 06:25] VITALS: BP 94/55
[2017-08-05 08:00] LABS: CHLORIDE,CL 110 mmol/L (98-115); SODIUM,NA 148 mmol/L (136-145)
[2017-08-05] MEDS: Nicotine 14 MG/24 Hr Patch TRDERM SCH (08:13)
--- NOTE | 2017-08-05 08:44 | PCM.DCSUM1 ---
Discharge Summary - Hospital Course Free Text/Narrative:: Stacie is being discharged today from an observation stay 08/04 - 08/05. She was admitted yesterday with left sided chest pain that radiated to her back. EKG negative, troponins negative x 4, CKMB negative also. D-dimer negative, CXR negative. Lipids done today showed a total cholesterol of 134, LDL 60 and HDL 47 with triglycerides of 133. She is a smoker and smoking cessation was encouraged. She still has some pain in her left chest and states "it's almost like it's a pulled muscle". She denies any injury. At this time, stress testing not indicated. No medication changes. Smoking cessation recommended. She will be discharged to home. - Discharge Data Discharge Date: 08/05/17 Discharge Disposition: Home, Self-Care 01 Condition: Good - Discharge Diagnosis/Problem(s) (1) Chest pain SNOMED Code(s): 82619628 ICD Code: R07.9 - CHEST PAIN, UNSPECIFIED Status: Acute Current Visit: Yes Qualifiers: Chest pain type: unspecified Qualified Code(s): R07.9 - Chest pain, unspecified - Patient Instructions Diet: Regular Diet as Tolerated Activity: As Tolerated - Discharge Plan Home Medications: Home Meds DULoxetine HCl [Cymbalta] 30 mg PO DAILY 12/31/16 [History] - Discharge Summary/Plan Comment DC Time >30 min.: No - General Info Date of Service: 08/05/17 Admission Dx/Problem (Free Text: Chest pain - Review of Systems Systems Review Comment: A 10 point ROS was obtained, all pertinent positives listed in the HPI, all other systems are negative. - Patient Data Vitals - Most Recent: Last Vital Signs Temp 98.2 F 08/05/17 06:25 Pulse 54 L 08/05/17 06:25 Resp 18 08/05/17 06:25 BP 94/55 L 08/05/17 06:25 Pulse Ox 97 08/05/17 06:25 Weight - Most Recent: 213 lb I&O - Last 24 hours: Intake & Output 08/04/17 08/05/17 08/05/17 22:59 06:59 14:59 Intake Total 670 0 Balance 670 0 Lab Results - Last 24 hrs: Laboratory Results - last 24 hr 08/04/17 08/04/17 08/04/17 Range/Units 16:05 17:25 22:00 WBC (5.0-10.0) 10^3/uL RBC (3.80-5.50) 10^6/uL Hgb (12.0-16.0) g/dL Hct (37.0-47.0) % MCV (82.0-92.0) fL MCH (27.0-31.0) pg MCHC (32.0-36.0) g/dL RDW (11.5-14.5) % Plt Count (150-300) 10^3/uL MPV (7.4-10.4) fL Neut % (Auto) (50.0-70.0) % Lymph % (Auto) (20.0-40.0) % [place] % (Auto) (2.0-8.0) % Eos % (Auto) (1.0-3.0) % Baso % (Auto) (0.0-1.0) % Neut # (Auto) (2.5-7.0) 10^3/uL Lymph # (Auto) (1.0-4.0) 10^3/uL [place] # (Auto) (0.1-0.8) 10^3/uL Eos # (Auto) (0.1-0.3) 10^3/uL Baso # (Auto) (0.0-0.1) 10^3/uL D-Dimer, Quantitative < 100 (<400) ng/mL Sodium (136-145) mmol/L Potassium (3.3-5.3) mmol/L Chloride (98-115) mmol/L Carbon Dioxide (21.0-32.0) mmol/L BUN (6-25) mg/dL Creatinine (0.51-1.17) mg/dL Est Cr Clr Drug Dosing mL/min Estimated GFR (MDRD) mL/min Glucose (70-110) mg/dL Calcium (8.7-10.3) mg/dL Magnesium (1.8-2.4) mg/dL Troponin I < 0.04 < 0.04 (0.00-0.070) ng/mL Triglycerides (30-150) mg/dL Cholesterol (100-199) mg/dL LDL Cholesterol, Calc (0-100) mg/dL HDL Cholesterol (40-60) mg/dL 08/05/17 08/05/17 Range/Units 07:30 07:30 WBC 6.2 (5.0-10.0) 10^3/uL RBC 4.14 (3.80-5.50) 10^6/uL Hgb 12.5 (12.0-16.0) g/dL Hct 38.3 (37.0-47.0) % MCV 92.4 H (82.0-92.0) fL MCH 30.1 (27.0-31.0) pg MCHC 32.6 (32.0-36.0) g/dL RDW 12.3 (11.5-14.5) % Plt Count 176 (150-300) 10^3/uL MPV 8.5 (7.4-10.4) fL Neut % (Auto) 63.0 (50.0-70.0) % Lymph % (Auto) 25.3 (20.0-40.0) % [place] % (Auto) 8.5 H (2.0-8.0) % Eos % (Auto) 2.6 (1.0-3.0) % Baso % (Auto) 0.6 (0.0-1.0) % Neut # (Auto) 3.9 (2.5-7.0) 10^3/uL Lymph # (Auto) 1.6 (1.0-4.0) 10^3/uL [place] # (Auto) 0.5 (0.1-0.8) 10^3/uL Eos # (Auto) 0.2 (0.1-0.3) 10^3/uL Baso # (Auto) 0.0 (0.0-0.1) 10^3/uL D-Dimer, Quantitative (<400) ng/mL Sodium 148 H (136-145) mmol/L Potassium 4.3 (3.3-5.3) mmol/L Chloride 110 (98-115) mmol/L Carbon Dioxide 29.1 (21.0-32.0) mmol/L BUN 11 (6-25) mg/dL Creatinine 0.83 (0.51-1.17) mg/dL Est Cr Clr Drug Dosing 76.77 mL/min Estimated GFR (MDRD) > 60 mL/min Glucose 97 (70-110) mg/dL Calcium 8.6 L (8.7-10.3) mg/dL Magnesium 1.9 (1.8-2.4) mg/dL Troponin I < 0.04 (0.00-0.070) ng/mL Triglycerides 133 (30-150) mg/dL Cholesterol 134 (100-199) mg/dL LDL Cholesterol, Calc 60 (0-100) mg/dL HDL Cholesterol 47 (40-60) mg/dL Med Orders - Current: Current Medications Acetaminophen (Tylenol Extra Strength) 1,000 mg PO Q8H PRN PRN Reason: Pain (mild 1-3) Last Admin: 08/04/17 18:37 Dose: 1,000 mg Aspirin (Ecotrin) 325 mg PO DAILY [facility] Last Admin: 08/05/17 08:12 Dose: 325 mg Atropine Sulfate (Atropine 0.1 Mg/Ml) 0.5 - 1 mg IVPUSH ASDIRECTED PRN PRN Reason: Heart Duloxetine HCl (Cymbalta) 30 mg PO DAILY [facility] Last Admin: 08/05/17 08:12 Dose: 30 mg Epinephrine HCl (Epinephrine 1:10,000) 1 mg IVPUSH ASDIRECTED PRN PRN Reason: Heart Ketorolac Tromethamine (Toradol) 30 mg IVPUSH Q6H PRN PRN Reason: Pain Stop: 08/09/17 14:38 Last Admin: 08/04/17 14:54 Dose: 30 mg Lidocaine HCl (Xylocaine 2%) 0 mg IVPUSH ASDIRECTED PRN PRN Reason: Heart Morphine Sulfate (Morphine) 2 mg IVPUSH Q4H PRN PRN Reason: Pain Last Admin: 08/04/17 15:30 Dose: 2 mg Nicotine (Habitrol) 14 mg TRDERM DAILY [facility] Last Admin: 08/05/17 08:13 Dose: Not Given Nitroglycerin (Nitro-Bid 2%) 1 gm TOP Q6H PRN PRN Reason: Chest Pain Nitroglycerin (Nitrostat) 0.4 mg SL ASDIRECTED PRN PRN Reason: Heart Sodium Chloride (Syrex Flush) 5 ml FLUSH Q8HR PRN PRN Reason: Keep Vein Open Zolpidem Tartrate (Ambien) 5 mg PO BEDTIME PRN PRN Reason: Sleep Discontinued Medications Aspirin (Aspirin) Confirm Administered Dose 324 mg .ROUTE .STK-MED ONE Stop: 08/04/17 09:28 Last Admin: 08/04/17 09:49 Dose: Not Given Aspirin (Aspirin) 324 mg PO ONETIME ONE Stop: 08/04/17 09:58 Last Admin: 08/04/17 09:58 Dose: 324 mg Sodium Chloride (Normal Saline) 1,000 mls @ 999 mls/hr IV .BOLUS ONE Stop: 08/04/17 11:13 Last Admin: 08/04/17 10:16 Dose: 999 mls/hr Nitroglycerin (Nitrostat) Confirm Administered Dose 0.4 mg .ROUTE .STK-MED ONE Stop: 08/04/17 09:28 Last Admin: 08/04/17 09:49 Dose: Not Given Nitroglycerin (Nitrostat) 0.4 mg SL Q5M PRN PRN Reason: Chest Pain Last Admin: 08/04/17 10:00 Dose: 0.4 mg Nitroglycerin (Nitro-Bid 2%) 1 gm TOP ONETIME ONE Stop: 08/04/17 10:14 Last Admin: 08/04/17 10:15 Dose: 1 gm Nitroglycerin (Nitro-Bid 2%) Confirm Administered Dose 1 gm .ROUTE .STK-MED ONE Stop: 08/04/17 10:14 Last Admin: 08/04/17 10:21 Dose: Not Given Sodium Chloride (Syrex Flush) 5 ml FLUSH Q8HR PRN PRN Reason: Keep Vein Open - Exam General: Reports: Alert, Oriented, Cooperative, No Acute Distress Lungs: Reports: Clear to Auscultation, Normal Respiratory Effort Cardiovascular: Reports: Regular Rate, Regular Rhythm, No Murmurs GI/Abdominal Exam: Normal Bowel Sounds *Q Meaningful Use (DIS) - VTE *Q VTE Criteria *Q: - Stroke *Q Stroke Criteria *Q: - AMI *Q AMI Criteria *Q:
[2017-08-05] MEDS ORDERED: Aspirin 325 MG Tab.EC PO SCH (09:00)
[2017-08-05] MEDS ORDERED: DULoxetine 30 MG Cap PO SCH (09:00)
== END 2017-08-05 10:05 | disposition home or self-care (01) ==
LOC: KA.ED 09:20 → KA.MS 10:25
PROVIDERS: ADMIT Physician Assistant Medical
DX: R07.9 Chest pain, unspecified (principal); F32.9 Major depressive disorder, single episode, unspecified; E66.9 Obesity, unspecified; Z68.30 Body mass index [BMI] 30.0-30.9, adult; Z79.899 Other long term (current) drug therapy; F17.210 Nicotine dependence, cigarettes, uncomplicated
CPT/HCPCS: 36415; 71045; 80048; 80053; 80061; 82550; 82553; 83735; 84484; 85025; 85379; 93005; 99285; A9270; J1885; J2270; J7030; 96374; 96375; G0378

== ENCOUNTER 2018-01-31 23:39 | Inpatient (IN) | payer BC, MEDICAID ==
[2018-01-31] MEDS ORDERED: Acetaminophen 325 MG Tab ONE (23:55)
[2018-01-31] MEDS ORDERED: Sodium Chloride 0.9% 1,000 ML ONE (23:55)
[2018-01-31] MEDS ORDERED: Acetaminophen 325 MG Tab PO ONE (23:56)
[2018-01-31] MEDS ORDERED: Sodium Chloride 0.9% 1,000 ML IV ONE (23:56)
[2018-01-31] MEDS ORDERED: Sodium Chloride 0.9% 5 ML Syringe FLUSH PRN (23:56)
--- NOTE | 2018-02-01 00:04 | EDM.PDOC ---
ED HPI GENERAL MEDICAL PROBLEM - General Chief Complaint: Fever Stated Complaint: dizziness Time Seen by Provider: 01/31/18 23:54 Source of Information: Reports: Patient History Limitations: Reports: No Limitations - History of Present Illness INITIAL COMMENTS - FREE TEXT/NARRATIVE: Patient is a 37-year-old female who presents to the emergency department this evening with a complaint of fever, back pain, and abdominal pain. Flank and abdominal pain described as sharp. Patient states that symptoms initially started as a fever 4 days ago, has not resolved, although she's taking Tylenol and Motrin. States today she developed low back pain that radiates to her abdomen. States that she also has diarrhea but denies any blood in stool. Patient states that no family members have similar symptoms. Patient denies chest pain, shortness of breath, or out of country travel. Onset: Gradual Onset Date: 01/27/18 Duration: Day(s):, Getting Worse Location: Reports: Abdomen, Back Quality: Reports: Ache Severity: Mild Improves with: Reports: None Worsens with: Reports: None Associated Symptoms: Reports: Fever/Chills. Denies: Chest Pain, Cough, cough w sputum, Shortness of Breath Treatments SALON LEADER: Reports: Acetaminophen, NSAIDS - Related Data Allergies Allergy/AdvReac Type Severity Reaction Status Date / Time No Known Drug Allergies Allergy Other Verified 08/04/17 09:41 Home Meds: Home Meds DULoxetine HCl [Cymbalta] 30 mg PO DAILY 12/31/16 [History] Past Medical History HEENT History: Reports: None Respiratory History: Reports: Other (See Below) Other Respiratory History: smoker Gastrointestinal History: Reports: None Genitourinary History: Reports: None LASER SPECIALIST History: Reports: Dysfunctional Uterine Bleeding, , Spontaneous Other LASER SPECIALIST History: 3 miscarriages. ovarian cysts Psychiatric History: Reports: Depression Endocrine/Metabolic History: Reports: Obesity/BMI 30+ Hematologic History: Reports: Anemia, Blood Transfusion(s) - Infectious Disease History Infectious Disease History: Reports: None - Past Surgical History Head Surgeries/Procedures: Reports: None HEENT Surgical History: Reports: Oral Surgery, Tonsillectomy GI Surgical History: Reports: Appendectomy, Cholecystectomy Female Surgical History: Reports: Section, Cystectomy, D&C Endocrine Surgical History: Reports: None Social & Family History - Family History Family Medical History: Noncontributory - Caffeine Use Caffeine Use: Reports: Soda Other Caffeine Use: ice tea and diet coke - Living Situation & Occupation Living situation: Reports: with Family Occupation: Employed ED ROS GENERAL - Review of Systems Review Of Systems: ROS reveals no pertinent complaints other than HPI. Constitutional: Reports: Fever HEENT: Reports: No Symptoms Respiratory: Reports: No Symptoms Cardiovascular: Reports: No Symptoms Endocrine: Reports: No Symptoms GI/Abdominal: Reports: Abdominal Pain, Diarrhea. Denies: Black Stool, Bloody Stool : Reports: Flank Pain (Bilaterally) Musculoskeletal: Reports: No Symptoms Skin: Reports: No Symptoms Neurological: Reports: No Symptoms Psychiatric: Reports: No Symptoms Hematologic/Lymphatic: Reports: No Symptoms Immunologic: Reports: No Symptoms ED EXAM, GENERAL - Physical Exam Exam: See Below Exam Limited By: No Limitations General Appearance: Alert, WD/WN, Mild Distress Nose: Normal Inspection, Normal Mucosa, No Blood Throat/Mouth: Normal Inspection, Normal Oropharynx, No Airway Compromise Head: Atraumatic, Normocephalic Neck: Normal Inspection, Supple, Non-Tender Respiratory/Chest: No Respiratory Distress, Lungs Clear, Normal Breath Sounds, No Accessory Muscle Use Cardiovascular: No Murmur, Tachycardia GI/Abdominal: Normal Bowel Sounds, Soft, No Organomegaly, No Distention, No Abnormal Bruit, No Mass, Tender (Diffusely). No: Non-Tender Back Exam: CVA Tenderness (L), CVA Tenderness (R). No: Paraspinal Tenderness, Vertebral Tenderness Extremities: Normal Inspection, No Pedal Edema Neurological: Alert, Oriented, Normal Cognition Psychiatric: Normal Affect, Normal Mood Skin Exam: Warm, Dry, Intact, Normal Color, No Rash Lymphatic: No Adenopathy Course - Vital Signs Last Recorded V/S: Last Vital Signs Temp 103.7 F H 02/01/18 00:20 Pulse 120 H 02/01/18 00:20 Resp 22 H 02/01/18 00:20 BP 107/64 02/01/18 00:20 Pulse Ox 99 02/01/18 00:20 - Orders/Labs/Meds Orders: Active Orders 24 hr Category Date Time Status Peripheral IV Care [RC] . DIRECTED Care 01/31/18 23:56 Ordered Abdomen Pelvis w Cont [CT] Stat Exams 02/01/18 00:34 Ordered CULTURE URINE [RM] Stat Lab 02/01/18 00:56 Ordered UA W/MICROSCOPIC [URIN] Stat Lab 01/31/18 23:54 Ordered Dextrose 5%-1/2 NS w/ 20 mEq/L KCl @ 125 mL/Hr (1000 mL Med 02/01/18 01:15 Ordered ) D5 1/2 NS w/ 20 mEq/L KCl 1,000 ml IV ASDIRECTED Sodium Chloride 0.9% [Syrex Flush] Med 01/31/18 23:56 Ordered 5 ml FLUSH Q8HR PRN Peripheral IV Insertion Adult [OM.PC] Routine Oth 01/31/18 23:56 Ordered Medication Orders Potassium Chloride/Dextrose/Sod Cl (D5 1/2 Ns W/ 20 Meq/L Kcl) 1,000 mls @ 125 mls/hr IV ASDIRECTED ALLIE Sodium Chloride (Syrex Flush) 5 ml FLUSH Q8HR PRN PRN Reason: Keep Vein Open Labs: Laboratory Tests 01/31/18 01/31/18 01/31/18 Range/Units 23:45 23:45 23:45 WBC 11.3 H (5.0-10.0) 10^3/uL RBC 4.07 (3.80-5.50) 10^6/uL Hgb 12.5 (12.0-16.0) g/dL Hct 37.0 (37.0-47.0) % MCV 91.0 (82.0-92.0) fL MCH 30.8 (27.0-31.0) pg MCHC 33.9 (32.0-36.0) g/dL RDW 12.1 (11.5-14.5) % Plt Count 198 (150-300) 10^3/uL MPV 7.9 (7.4-10.4) fL Neut % (Auto) 89.3 H (50.0-70.0) % Lymph % (Auto) 4.1 L (20.0-40.0) % [place] % (Auto) 6.0 (2.0-8.0) % Eos % (Auto) 0.3 L (1.0-3.0) % Baso % (Auto) 0.3 (0.0-1.0) % Neut # (Auto) 10.1 H (2.5-7.0) 10^3/uL Lymph # (Auto) 0.5 L (1.0-4.0) 10^3/uL [place] # (Auto) 0.7 (0.1-0.8) 10^3/uL Eos # (Auto) 0.0 L (0.1-0.3) 10^3/uL Baso # (Auto) 0.0 (0.0-0.1) 10^3/uL Sodium 139 (136-145) mmol/L Potassium 2.8 L D (3.3-5.3) mmol/L Chloride 102 (98-115) mmol/L Carbon Dioxide 24.0 (21.0-32.0) mmol/L Anion Gap 15.8 H (5-15) mmol/L BUN 9 (6-25) mg/dL Creatinine 0.88 (0.51-1.17) mg/dL Est Cr Clr Drug Dosing 71.70 mL/min Estimated GFR (MDRD) > 60 mL/min Glucose 172 mg/dL Lactic Acid 3.3 H (0.4-2.0) mmol/L Calcium 8.6 L (8.7-10.3) mg/dL Total Bilirubin 0.6 (0.2-1.0) mg/dL AST 57 H (15-37) U/L ALT 85 H (12-78) U/L Alkaline Phosphatase 131 H (46-116) IU/L Total Protein 7.2 (6.4-8.2) g/dL Albumin 3.06 (3.00-4.80) g/dL HCG, Qual (NEGATIVE) Specimen Type Urine Color (YELLOW) Urine Appearance (CLEAR) Urine pH (5.0-9.0) Ur Specific [place] (1.005-1.030) Urine Protein (NEGATIVE) mg/dL Urine Glucose (UA) (NEGATIVE) mg/dL Urine Ketones (NEGATIVE) mg/dL Urine Occult Blood (NEGATIVE) Urine Nitrite (NEGATIVE) Urine Bilirubin (NEGATIVE) Urine Urobilinogen (0.2-1.0) E.U./dL Ur Leukocyte Esterase (NEGATIVE) Urine RBC /HPF Urine WBC /HPF Ur Epithelial Cells /LPF Amorphous Sediment (0/HPF) /HPF Urine Bacteria (NONE TO FEW) /HPF 01/31/18 01/31/18 Range/Units 23:45 23:54 WBC (5.0-10.0) 10^3/uL RBC (3.80-5.50) 10^6/uL Hgb (12.0-16.0) g/dL Hct (37.0-47.0) % MCV (82.0-92.0) fL MCH (27.0-31.0) pg MCHC (32.0-36.0) g/dL RDW (11.5-14.5) % Plt Count (150-300) 10^3/uL MPV (7.4-10.4) fL Neut % (Auto) (50.0-70.0) % Lymph % (Auto) (20.0-40.0) % [place] % (Auto) (2.0-8.0) % Eos % (Auto) (1.0-3.0) % Baso % (Auto) (0.0-1.0) % Neut # (Auto) (2.5-7.0) 10^3/uL Lymph # (Auto) (1.0-4.0) 10^3/uL [place] # (Auto) (0.1-0.8) 10^3/uL Eos # (Auto) (0.1-0.3) 10^3/uL Baso # (Auto) (0.0-0.1) 10^3/uL Sodium (136-145) mmol/L Potassium (3.3-5.3) mmol/L Chloride (98-115) mmol/L Carbon Dioxide (21.0-32.0) mmol/L Anion Gap (5-15) mmol/L BUN (6-25) mg/dL Creatinine (0.51-1.17) mg/dL Est Cr Clr Drug Dosing mL/min Estimated GFR (MDRD) mL/min Glucose mg/dL Lactic Acid (0.4-2.0) mmol/L Calcium (8.7-10.3) mg/dL Total Bilirubin (0.2-1.0) mg/dL AST (15-37) U/L ALT (12-78) U/L Alkaline Phosphatase (46-116) IU/L Total Protein (6.4-8.2) g/dL Albumin (3.00-4.80) g/dL HCG, Qual Negative (NEGATIVE) Specimen Type Urincc Urine Color Yellow (YELLOW) Urine Appearance Cloudy H (CLEAR) Urine pH 5.0 (5.0-9.0) Ur Specific [place] 1.015 (1.005-1.030) Urine Protein 100 H (NEGATIVE) mg/dL Urine Glucose (UA) Negative (NEGATIVE) mg/dL Urine Ketones Negative (NEGATIVE) mg/dL Urine Occult Blood Large H (NEGATIVE) Urine Nitrite Negative (NEGATIVE) Urine Bilirubin Negative (NEGATIVE) Urine Urobilinogen 0.2 (0.2-1.0) E.U./dL Ur Leukocyte Esterase Moderate H (NEGATIVE) Urine RBC 5-10 H /HPF Urine WBC 75-100 H /HPF Ur Epithelial Cells Occasional /LPF Amorphous Sediment Few (0/HPF) /HPF Urine Bacteria Many H (NONE TO FEW) /HPF Meds: Medications Generic Name Dose Route Start Last Admin Trade Name Freq PRN Reason Stop Dose Admin Potassium Chloride/Dextrose/Sod Cl 1,000 mls @ 125 mls/hr 02/01/18 01:15 D5 1/2 Ns W/ 20 Meq/L Kcl IV ASDIRECTED ALLIE Sodium Chloride 5 ml 01/31/18 23:56 Syrex Flush FLUSH Q8HR PRN Keep Vein Open Discontinued Medications Generic Name Dose Route Start Last Admin Trade Name Freq PRN Reason Stop Dose Admin Acetaminophen 650 mg 01/31/18 23:56 01/31/18 23:50 Tylenol PO 01/31/18 23:57 650 mg NOW ONE Administration Acetaminophen Confirm 01/31/18 23:55 02/01/18 00:09 Tylenol Administered 01/31/18 23:56 Not Given Dose 650 mg .ROUTE .STK-MED ONE Ceftriaxone Sodium 1 gm 02/01/18 00:56 Rocephin IVPUSH 02/01/18 00:57 ONETIME ONE Sodium Chloride 1,000 mls @ 999 mls/hr 01/31/18 23:56 01/31/18 23:50 Normal Saline IV 02/01/18 00:56 999 mls/hr .BOLUS ONE Administration Sodium Chloride Confirm 01/31/18 23:55 02/01/18 00:08 Normal Saline Administered 01/31/18 23:56 Not Given Dose 1,000 mls @ as directed .ROUTE .STK-MED ONE Sodium Chloride 1,000 mls @ 999 mls/hr 02/01/18 01:01 Normal Saline IV 02/01/18 02:01 .BOLUS ONE Iopamidol 75 ml 02/01/18 01:06 02/01/18 01:08 Isovue-300 (61%) IV 75 ml . DIRECTED PRN Administration FOR RADIOLOGY EXAM Morphine Sulfate 4 mg 02/01/18 00:33 02/01/18 00:40 Morphine IVPUSH 02/01/18 00:34 4 mg ONETIME ONE Administration Morphine Sulfate Confirm 02/01/18 00:36 02/01/18 00:41 Morphine Administered 02/01/18 00:37 Not Given Dose 4 mg .ROUTE .STK-MED ONE Ondansetron HCl 4 mg 02/01/18 00:24 02/01/18 00:27 Zofran IVPUSH 02/01/18 00:25 4 mg ONETIME ONE Administration Ondansetron HCl Confirm 02/01/18 00:26 Zofran Administered 02/01/18 00:27 Dose 4 mg .ROUTE .STK-MED ONE Sodium Chloride 50 ml 02/01/18 01:15 02/01/18 01:08 Normal Saline FLUSH 02/01/18 01:16 50 ml ONETIME ONE Administration - Radiology Interpretation Free Text/Narrative:: CT abdomen and pelvis with IV contrast shows bilateral renal collecting system abnormalities suggestive of acute pyelonephritis - Re-Assessments/Exams Free Text/Narrative Re-Assessment/Exam: 02/01/18 02:13 Patient nontoxic appearing, vital signs stable, temperature down to 100. 1 g Rocephin IV and 20 potassium given in ER. Will admit inpatient for IV antibiotics. 02/01/18 02:18 Departure - Departure Time of Disposition: 02:15 Disposition: Admitted As Inpatient 65 Condition: Fair Clinical Impression: Pyelonephritis, Hypokalemia - Discharge Information Forms: ED Department Discharge - My Orders Last 24 Hours: My Active Orders 01/31/18 23:54 UA W/MICROSCOPIC [URIN] Stat 01/31/18 23:56 Peripheral IV Care [RC] . DIRECTED Sodium Chloride 0.9% [Syrex Flush] 5 ml FLUSH Q8HR PRN Peripheral IV Insertion Adult [OM.PC] Routine 02/01/18 00:34 Abdomen Pelvis w Cont [CT] Stat 02/01/18 00:56 CULTURE URINE [RM] Stat 02/01/18 01:15 Dextrose 5%-1/2 NS w/ 20 mEq/L KCl @ 125 mL/Hr (1000 mL) D5 1/2 NS w/ 20 mEq/L KCl 1,000 ml IV ASDIRECTED - Assessment/Plan Admission H&P: Please use this note as an admission H&P Last 24 Hours: My Active Orders 01/31/18 23:54 UA W/MICROSCOPIC [URIN] Stat 01/31/18 23:56 Peripheral IV Care [RC] . DIRECTED Sodium Chloride 0.9% [Syrex Flush] 5 ml FLUSH Q8HR PRN Peripheral IV Insertion Adult [OM.PC] Routine 02/01/18 00:34 Abdomen Pelvis w Cont [CT] Stat 02/01/18 00:56 CULTURE URINE [RM] Stat 02/01/18 01:15 Dextrose 5%-1/2 NS w/ 20 mEq/L KCl @ 125 mL/Hr (1000 mL) D5 1/2 NS w/ 20 mEq/L KCl 1,000 ml IV ASDIRECTED Assessment:: Acute pyelonephritis Plan: Admit inpatient to Dr. Gomez's service
[2018-02-01] MEDS ORDERED: Ondansetron 4 MG/2 ML SDV IVPUSH ONE ×2 (00:24→08:04)
[2018-02-01] MEDS ORDERED: Ondansetron 4 MG/2 ML SDV ONE (00:26)
[2018-02-01] MEDS ORDERED: Morphine 4 MG/ML Syringe IVPUSH ONE (00:33)
[2018-02-01] MEDS ORDERED: Morphine 4 MG/ML Syringe ONE (00:36)
[2018-02-01 00:43] LABS: ANION GAP 15.8 mmol/L (5-15); CHLORIDE,CL 102 mmol/L (98-115); SODIUM,NA 139 mmol/L (136-145)
[2018-02-01] MEDS ORDERED: cefTRIAXone 1 GM Vial IVPUSH ONE (00:56)
[2018-02-01] MEDS ORDERED: Sodium Chloride 0.9% 1,000 ML IV ONE ×2 (01:01→11:44)
[2018-02-01] MEDS ORDERED: Iopamidol 612 MG/ML 75 ML Bottle IV PRN (01:06)
[2018-02-01] MEDS ORDERED: Sodium Chloride 0.9% 50 ML SDV FLUSH ONE (01:15)
[2018-02-01] MEDS ORDERED: HYDROmorphone 2 MG/ML SDV IVPUSH PRN (02:20)
[2018-02-01] MEDS: D5 1/2 NS w/ 20 mEq/L KCl 1,000 ML IV SCH ×3 (03:29→22:20)
[2018-02-01] MEDS: HYDROmorphone 1 MG/ML Syringe ONE ×2 (03:50→07:28)
[2018-02-01] MEDS: Acetaminophen 325 MG Tab PO PRN ×2 (06:37→21:38)
[2018-02-01] MEDS ORDERED: HYDROmorphone 1 MG/ML Syringe IVPUSH PRN (07:00)
[2018-02-01] MEDS ORDERED: HYDROmorphone 1 MG/ML Syringe ONE (07:25)
[2018-02-01] MEDS ORDERED: Ibuprofen 600 MG Tab PO ONE (08:05)
[2018-02-01] MEDS ORDERED: Potassium Chloride 20 MEQ Tab.ER PO ONE (08:30)
[2018-02-01] MEDS ORDERED: Ondansetron 4 MG/2 ML SDV IVPUSH PRN (08:44)
[2018-02-01] MEDS ORDERED: Levofloxacin/Dextrose 5%-Water 100 ML IV ONE (08:50)
--- NOTE | 2018-02-01 08:50 | PCM.PN ---
- General Info Date of Service: 02/01/18 Admission Dx/Problem (Free Text): Bilateral pyelonephritis L>R Subjective Update: Stacie is seen today on inpatient rounds. She was admitted last evening with urine positive for UTI and CT Abdomen pelvis showing changes suggestive of acute pyelonephritis bilaterally, L>R. She had been home sick for the past 4 days with fevers she could not get below 100 with some mild diarrhea and occasional vomiting. She had no sick contacts. She had no urinary symptoms. She did have bilateral flank paint that wrapped around to her abdomen. Her temp has been as high as 103.7. In the ER she had a urine culture, lactate was elevated at 3. She received Tylenol for her fever which did drop her temp down. She also received rocephin 1 gram IV x 1 dose. This morning she again had a temp of 103.7 and was given Tylenol which dropped her down to around 100, she them received ibuprofen 600 mg x 1 dose. She has just received that. She notes that she is having some vaginal bleeding currently and completed her period 2 weeks ago. test was negative. She feels "rotten". - Patient Data Vitals - Most Recent: Last Vital Signs Temp 103.7 F H 02/01/18 07:07 Pulse 106 H 02/01/18 06:52 Resp 20 02/01/18 06:52 BP 100/69 02/01/18 06:52 Pulse Ox 96 02/01/18 06:52 Weight - Most Recent: 195 lb 3.2 oz I&O - Last 24 Hours: Intake & Output 01/31/18 02/01/18 02/01/18 22:59 06:59 14:59 Intake Total 2420 Output Total 480 Balance 1940 Lab Results Last 24 Hours: Laboratory Results - last 24 hr 01/31/18 01/31/18 01/31/18 Range/Units 23:45 23:45 23:45 WBC 11.3 H (5.0-10.0) 10^3/uL RBC 4.07 (3.80-5.50) 10^6/uL Hgb 12.5 (12.0-16.0) g/dL Hct 37.0 (37.0-47.0) % MCV 91.0 (82.0-92.0) fL MCH 30.8 (27.0-31.0) pg MCHC 33.9 (32.0-36.0) g/dL RDW 12.1 (11.5-14.5) % Plt Count 198 (150-300) 10^3/uL MPV 7.9 (7.4-10.4) fL Neut % (Auto) 89.3 H (50.0-70.0) % Lymph % (Auto) 4.1 L (20.0-40.0) % [place] % (Auto) 6.0 (2.0-8.0) % Eos % (Auto) 0.3 L (1.0-3.0) % Baso % (Auto) 0.3 (0.0-1.0) % Neut # (Auto) 10.1 H (2.5-7.0) 10^3/uL Lymph # (Auto) 0.5 L (1.0-4.0) 10^3/uL [place] # (Auto) 0.7 (0.1-0.8) 10^3/uL Eos # (Auto) 0.0 L (0.1-0.3) 10^3/uL Baso # (Auto) 0.0 (0.0-0.1) 10^3/uL Sodium 139 (136-145) mmol/L Potassium 2.8 L D (3.3-5.3) mmol/L Chloride 102 (98-115) mmol/L Carbon Dioxide 24.0 (21.0-32.0) mmol/L Anion Gap 15.8 H (5-15) mmol/L BUN 9 (6-25) mg/dL Creatinine 0.88 (0.51-1.17) mg/dL Est Cr Clr Drug Dosing 71.70 mL/min Estimated GFR (MDRD) > 60 mL/min Glucose 172 mg/dL Lactic Acid 3.3 H (0.4-2.0) mmol/L Calcium 8.6 L (8.7-10.3) mg/dL Total Bilirubin 0.6 (0.2-1.0) mg/dL AST 57 H (15-37) U/L ALT 85 H (12-78) U/L Alkaline Phosphatase 131 H (46-116) IU/L Total Protein 7.2 (6.4-8.2) g/dL Albumin 3.06 (3.00-4.80) g/dL HCG, Qual (NEGATIVE) Specimen Type Urine Color (YELLOW) Urine Appearance (CLEAR) Urine pH (5.0-9.0) Ur Specific Media (1.005-1.030) Urine Protein (NEGATIVE) mg/dL Urine Glucose (UA) (NEGATIVE) mg/dL Urine Ketones (NEGATIVE) mg/dL Urine Occult Blood (NEGATIVE) Urine Nitrite (NEGATIVE) Urine Bilirubin (NEGATIVE) Urine Urobilinogen (0.2-1.0) E.U./dL Ur Leukocyte Esterase (NEGATIVE) Urine RBC /HPF Urine WBC /HPF Ur Epithelial Cells /LPF Amorphous Sediment (0/HPF) /HPF Urine Bacteria (NONE TO FEW) /HPF 01/31/18 01/31/18 Range/Units 23:45 23:54 WBC (5.0-10.0) 10^3/uL RBC (3.80-5.50) 10^6/uL Hgb (12.0-16.0) g/dL Hct (37.0-47.0) % MCV (82.0-92.0) fL MCH (27.0-31.0) pg MCHC (32.0-36.0) g/dL RDW (11.5-14.5) % Plt Count (150-300) 10^3/uL MPV (7.4-10.4) fL Neut % (Auto) (50.0-70.0) % Lymph % (Auto) (20.0-40.0) % [place] % (Auto) (2.0-8.0) % Eos % (Auto) (1.0-3.0) % Baso % (Auto) (0.0-1.0) % Neut # (Auto) (2.5-7.0) 10^3/uL Lymph # (Auto) (1.0-4.0) 10^3/uL [place] # (Auto) (0.1-0.8) 10^3/uL Eos # (Auto) (0.1-0.3) 10^3/uL Baso # (Auto) (0.0-0.1) 10^3/uL Sodium (136-145) mmol/L Potassium (3.3-5.3) mmol/L Chloride (98-115) mmol/L Carbon Dioxide (21.0-32.0) mmol/L Anion Gap (5-15) mmol/L BUN (6-25) mg/dL Creatinine (0.51-1.17) mg/dL Est Cr Clr Drug Dosing mL/min Estimated GFR (MDRD) mL/min Glucose mg/dL Lactic Acid (0.4-2.0) mmol/L Calcium (8.7-10.3) mg/dL Total Bilirubin (0.2-1.0) mg/dL AST (15-37) U/L ALT (12-78) U/L Alkaline Phosphatase (46-116) IU/L Total Protein (6.4-8.2) g/dL Albumin (3.00-4.80) g/dL HCG, Qual Negative (NEGATIVE) Specimen Type Urincc Urine Color Yellow (YELLOW) Urine Appearance Cloudy H (CLEAR) Urine pH 5.0 (5.0-9.0) Ur Specific Media 1.015 (1.005-1.030) Urine Protein 100 H (NEGATIVE) mg/dL Urine Glucose (UA) Negative (NEGATIVE) mg/dL Urine Ketones Negative (NEGATIVE) mg/dL Urine Occult Blood Large H (NEGATIVE) Urine Nitrite Negative (NEGATIVE) Urine Bilirubin Negative (NEGATIVE) Urine Urobilinogen 0.2 (0.2-1.0) E.U./dL Ur Leukocyte Esterase Moderate H (NEGATIVE) Urine RBC 5-10 H /HPF Urine WBC 75-100 H /HPF Ur Epithelial Cells Occasional /LPF Amorphous Sediment Few (0/HPF) /HPF Urine Bacteria Many H (NONE TO FEW) /HPF Med Orders - Current: Current Medications Acetaminophen (Tylenol) 650 mg PO Q4H PRN PRN Reason: Temperature Last Admin: 02/01/18 06:37 Dose: 650 mg Hydromorphone HCl (Dilaudid) 0.5 mg IVPUSH Q2H PRN PRN Reason: Pain (severe 7-10) Potassium Chloride/Dextrose/Sod Cl (D5 1/2 Ns W/ 20 Meq/L Kcl) 1,000 mls @ 125 mls/hr IV ASDIRECTED [facility]IE Last Admin: 02/01/18 03:29 Dose: 125 mls/hr Levofloxacin/Dextrose 500 mg/ (Premix) 100 mls @ 100 mls/hr IV Q24H ALLIE Ondansetron HCl (Zofran) 4 mg IVPUSH Q4H PRN PRN Reason: Nausea/Vomiting Sodium Chloride (Syrex Flush) 5 ml FLUSH Q8HR PRN PRN Reason: Keep Vein Open Discontinued Medications Acetaminophen (Tylenol) 650 mg PO NOW ONE Stop: 01/31/18 23:57 Last Admin: 01/31/18 23:50 Dose: 650 mg Acetaminophen (Tylenol) Confirm Administered Dose 650 mg .ROUTE .STK-MED ONE Stop: 01/31/18 23:56 Last Admin: 02/01/18 00:09 Dose: Not Given Ceftriaxone Sodium (Rocephin) 1 gm IVPUSH ONETIME ONE Stop: 02/01/18 00:57 Last Admin: 02/01/18 03:29 Dose: 1 gm Hydromorphone HCl (Dilaudid) 0.5 mg IVPUSH Q2H PRN PRN Reason: Pain (severe 7-10) Last Admin: 02/01/18 03:42 Dose: 0.5 mg Hydromorphone HCl (Dilaudid) Confirm Administered Dose 1 mg .ROUTE .STK-MED ONE Stop: 02/01/18 03:42 Last Admin: 02/01/18 07:28 Dose: Not Given Hydromorphone HCl (Dilaudid) Confirm Administered Dose 1 mg .ROUTE .STK-MED ONE Stop: 02/01/18 07:26 Sodium Chloride (Normal Saline) 1,000 mls @ 999 mls/hr IV .BOLUS ONE Stop: 02/01/18 00:56 Last Admin: 01/31/18 23:50 Dose: 999 mls/hr Sodium Chloride (Normal Saline) Confirm Administered Dose 1,000 mls @ as directed .ROUTE .STK-MED ONE Stop: 01/31/18 23:56 Last Admin: 02/01/18 00:08 Dose: Not Given Sodium Chloride (Normal Saline) 1,000 mls @ 999 mls/hr IV .BOLUS ONE Stop: 02/01/18 02:01 Last Admin: 02/01/18 03:30 Dose: 999 mls/hr Ibuprofen (Motrin) 600 mg PO ONETIME ONE Stop: 02/01/18 08:06 Last Admin: 02/01/18 08:27 Dose: 600 mg Iopamidol (Isovue-300 (61%)) 75 ml IV . DIRECTED PRN PRN Reason: FOR RADIOLOGY EXAM Last Admin: 02/01/18 01:08 Dose: 75 ml Morphine Sulfate (Morphine) 4 mg IVPUSH ONETIME ONE Stop: 02/01/18 00:34 Last Admin: 02/01/18 00:40 Dose: 4 mg Morphine Sulfate (Morphine) Confirm Administered Dose 4 mg .ROUTE .STK-MED ONE Stop: 02/01/18 00:37 Last Admin: 02/01/18 00:41 Dose: Not Given Ondansetron HCl (Zofran) 4 mg IVPUSH ONETIME ONE Stop: 02/01/18 00:25 Last Admin: 02/01/18 00:27 Dose: 4 mg Ondansetron HCl (Zofran) Confirm Administered Dose 4 mg .ROUTE .STK-MED ONE Stop: 02/01/18 00:27 Last Admin: 02/01/18 03:51 Dose: Not Given Ondansetron HCl (Zofran) 4 mg IVPUSH ONETIME ONE Stop: 02/01/18 08:05 Last Admin: 02/01/18 08:23 Dose: 4 mg Potassium Chloride (Klor-Con M20) 40 meq PO ONETIME ONE Stop: 02/01/18 08:31 Last Admin: 02/01/18 08:27 Dose: 40 meq Sodium Chloride (Normal Saline) 50 ml FLUSH ONETIME ONE Stop: 02/01/18 01:16 Last Admin: 02/01/18 01:08 Dose: 50 ml - Exam General: Alert, Oriented, Cooperative, Other (She appears uncomfortable.) Lungs: Clear to Auscultation, Normal Respiratory Effort Cardiovascular: Regular Rate, Regular Rhythm, No Murmurs GI/Abdominal Exam: Normal Bowel Sounds, No Mass, Tender (Diffusely tender but especially with suprapubic tenderness. She also has bilateral CVA tenderness.) Back Exam: CVA Tenderness (L), CVA Tenderness (R) Extremities: Normal Inspection, No Pedal Edema - Problem List & Annotations (1) Hypokalemia SNOMED Code(s): 53527379 Code(s): E87.6 - HYPOKALEMIA Status: Acute Current Visit: No (2) Pyelonephritis SNOMED Code(s): 71789523 Code(s): N12 - TUBULO-INTERSTITIAL NEPHRITIS, NOT SPCF ACUTE OR CHRONIC Status: Acute Current Visit: No - Problem List Review Problem List Initiated/Reviewed/Updated: Yes - My Orders Last 24 Hours: My Active Orders 02/01/18 06:32 Acetaminophen [Tylenol] 650 mg PO Q4H PRN 02/01/18 07:45 Blood Culture x2 Reflex Set [OM.PC] Stat 02/01/18 07:50 CULTURE BLOOD [BC] Stat 02/01/18 08:10 CULTURE BLOOD [BC] Stat 02/01/18 08:27 BASIC METABOLIC PANEL,BMP [CHEM] Routine LACTIC ACID [CHEM] Routine 02/01/18 08:30 CBC W/O DIFF,HEMOGRAM [HEME] DAILY Levofloxacin/Dextrose 5%-Water [Levaquin in D5W 500 MG/100 ML] 500 mg Premix Bag 1 bag IV Q24H 02/01/18 08:44 Ondansetron [Zofran] 4 mg IVPUSH Q4H PRN 02/02/18 05:11 BASIC METABOLIC PANEL,BMP [CHEM] AM CBC W/O DIFF,HEMOGRAM [HEME] AM LACTIC ACID [CHEM] AM 02/03/18 05:11 BASIC METABOLIC PANEL,BMP [CHEM] AM CBC W/O DIFF,HEMOGRAM [HEME] AM LACTIC ACID [CHEM] AM 02/04/18 05:11 BASIC METABOLIC PANEL,BMP [CHEM] AM CBC W/O DIFF,HEMOGRAM [HEME] AM LACTIC ACID [CHEM] AM 02/05/18 05:11 BASIC METABOLIC PANEL,BMP [CHEM] AM CBC W/O DIFF,HEMOGRAM [HEME] AM LACTIC ACID [CHEM] AM 02/06/18 05:11 BASIC METABOLIC PANEL,BMP [CHEM] AM CBC W/O DIFF,HEMOGRAM [HEME] AM LACTIC ACID [CHEM] AM - Assessment Assessment:: Bilateral pyelonephritis. Hypokalemia. Nausea. Flank and abdominal pain. - Plan Plan:: Bilateral pyelonephritis. Urine culture pending. Blood cultures drawn today as they were not done in the ER. Will start levofloxacin 500 mg IV daily. Hypokalemia. She has IVF's with 20 KCl in the fluids. Will also give additional 40 meQ PO x 1. Daily labs. Nausea. Zofran IV 4 mg q 4 hours PRN nausea/vomiting. Flank and abdominal pain. She has Diladid PRN for severe pain. Will get daily labs. Will need to be fever free for at least 24 hours prior to discharge. Will send home on outpatient antibiotics depending on what culture and sensitivities yield.
[2018-02-01] MEDS: Levofloxacin/Dextrose 5%-Water 500 MG in Premix Bag 1 BAG IV SCH (08:54)
[2018-02-01 09:15] LABS: ANION GAP 19.2 mmol/L (5-15); CHLORIDE,CL 103 mmol/L (98-115); SODIUM,NA 144 mmol/L (136-145)
[2018-02-02] MEDS ORDERED: Ibuprofen 600 MG Tab PO ONE (01:40)
[2018-02-02] MEDS: Acetaminophen 325 MG Tab PO PRN (02:43)
[2018-02-02] MEDS: D5 1/2 NS w/ 20 mEq/L KCl 1,000 ML IV SCH (06:23)
[2018-02-02 08:00] LABS: ANION GAP 11.4 mmol/L (5-15); CHLORIDE,CL 106 mmol/L (98-115); SODIUM,NA 139 mmol/L (136-145)
[2018-02-02] MEDS: Levofloxacin/Dextrose 5%-Water 500 MG in Premix Bag 1 BAG IV SCH (08:42)
--- NOTE | 2018-02-02 17:53 | PN ---
02/02/2018 PATIENT NAME: REX WALLACE SUBJECTIVE: This is a 37-year-old female who was admitted to the hospital on 02/01/2018 through the emergency room. The patient presented with fever, back pain, as well as abdominal pain. She was found to have a bilateral pyelonephritis. She did have a T-max of a 103.7, which was treated with Tylenol. She did have blood cultures after being admitted to the hospital and these were negative. Urine culture is still pending. The patient continues to have febrile episodes. Her last fever was at 2:58 this morning and was 101. The plan for discharge will be determined upon the fact that she is afebrile for 24 hours. The patient reports she is feeling quite a bit better than she was upon admission. She was symptomatic for 4 days prior to her presentation to the emergency room. LABORATORY DATA: Significant lab data from today, her white count has normalized at 5.2. Hemoglobin is 9.9. This is possibly dilutional. The patient has received several liters of IV fluids. In fact, is requesting to have the intravenous fluids discontinued today due to the fact that she feels as though she is retaining a lot of fluid. Sodium is normal at 139. She did have a low potassium of 2.8, which was treated with IV potassium as well as oral potassium. Her potassium today has normalized at 3.9. Renal function is normal with a BUN of 8 and a creatinine of 0.77 respectively. Her GFR is greater than 60 with a creatinine clearance of 81.95. Calcium is somewhat low at 8.1. She did have elevated AST, ALT, and alkaline phosphatase on admission which will be followed as an outpatient. OBJECTIVE: VITAL SIGNS: Temperature is 96.6, pulse 64, respirations 18, blood pressure 91/55, oxygen saturation is 98% on room air. SKIN: Warm and dry to touch. HEART: Normal. LUNGS: Normal. ABDOMEN: There is no abdominal pain. EXTREMITIES: She does have some generalized nonpitting edema from fluid retention. IMPRESSION: 1. Acute bilateral pyelonephritis. The patient will continue on IV Levaquin. Her labs are is stabilizing. She will continue on Levaquin. Urine cultures are still pending. Blood cultures have been negative thus far. 2. Hypokalemia. This is normalized. We will discontinue IV fluids and also withhold any additional oral potassium replacement. 3. Hemoglobin of 9.9. I am not certain if this is possibly delusional from all of the IV fluids that she has received. We will continue to monitor this. The patient is understanding that she will need to be afebrile for 24 hours preferably prior to discharge. She will be seen by Dr. Livier Barnes tomorrow. /[id number]/MODL
[2018-02-03 07:10] VITALS: BP 101/63
[2018-02-03] MEDS: Levofloxacin/Dextrose 5%-Water 500 MG in Premix Bag 1 BAG IV SCH (07:49)
[2018-02-03 08:08] LABS: ANION GAP 7.2 mmol/L (5-15); CHLORIDE,CL 106 mmol/L (98-115); SODIUM,NA 136 mmol/L (136-145)
--- NOTE | 2018-02-03 09:06 | PCM.DCSUM1 ---
Discharge Summary - Hospital Course Free Text/Narrative:: Stacie is being discharged from an inpatient stay from 01/31/18 - 02/03/18 for UTI with bilateral pyelonephritis, L>R. She has not had this before. She had been having fevers for 4 days prior to admission. She was evaluated in ER with temp up to 103 as well as bilateral flank pain radiating to her abdomen and groin. UA positive for UTI and CT abdomen/pelvic showing fat stranding around the kidney consistent with pyelonephritis. She was initially given rocephin 1 gram in the ER and then started on levofloxacin 500 mg IV daily. She had a mild leukocytosis which has resolved. Blood cultures negative for 2 days. Urine culture positive but pending sensitivities. She has been fever free for 24 hours. She is ready to go home. She has had some mild diarrhea from the antibiotics. No concern for C. Diff at this time. She will be discharged with an additional 10 days of oral levofloxacin 750 mg PO daily. She also had some hypokalemia but this has resolved with replacement. Most likely secondary to some mild diarrhea and vomiting she had prior to admission. Discharge diagnoses: Acute UTI Acute bilateral pyelonephritis, L>R Leukocytosis secondary to above. Hypokalemia Bilateral flank and abdominal pain, see above. Diagnosis: Stroke: No Modified [place] Scale: No Signif.Disability Despite Sympt.Able to Carry Out Usual Act./Duties Modified [place] Scale Score: 1 - Discharge Data Discharge Date: 02/03/18 Discharge Disposition: Home, Self-Care 01 Condition: Good - Discharge Diagnosis/Problem(s) (1) Hypokalemia SNOMED Code(s): 21239017 ICD Code: E87.6 - HYPOKALEMIA Status: Acute Current Visit: No (2) Pyelonephritis SNOMED Code(s): 92821220 ICD Code: N12 - TUBULO-INTERSTITIAL NEPHRITIS, NOT SPCF ACUTE OR CHRONIC Status: Acute Current Visit: No - Patient Summary/Data Labs Pending at D/C: Urine sensitivities. - Patient Instructions Diet: Regular Diet as Tolerated Activity: As Tolerated Notify Provider of: Fever, Increased Pain - Discharge Plan *PRESCRIPTION DRUG MONITORING PROGRAM REVIEWED*: Not Applicable *COPY OF PRESCRIPTION DRUG MONITORING REPORT IN PATIENT IGNACIA: Not Applicable Prescriptions/Med Rec: Levofloxacin 750 mg PO DAILY #10 tablet Home Medications: Home Meds Levofloxacin 750 mg PO DAILY #10 tablet 02/03/18 [Rx] Forms: ED Department Discharge Referrals: PCP,Unobtain [Ordering Only Provider] - - Discharge Summary/Plan Comment DC Time >30 min.: No - Patient Data Vitals - Most Recent: Last Vital Signs Temp 98.7 F 02/03/18 07:00 Pulse 67 02/03/18 07:00 Resp 16 02/03/18 07:00 BP 101/63 02/03/18 07:00 Pulse Ox 98 02/03/18 07:00 Weight - Most Recent: 195 lb 3.2 oz I&O - Last 24 hours: Intake & Output 02/02/18 02/03/18 02/03/18 22:59 06:59 14:59 Intake Total 550 610 100 Output Total 1025 1300 Balance -475 -690 100 Lab Results - Last 24 hrs: Laboratory Results - last 24 hr 02/03/18 02/03/18 02/03/18 Range/Units 07:20 07:20 07:20 WBC 5.6 (5.0-10.0) 10^3/uL RBC 3.32 L (3.80-5.50) 10^6/uL Hgb 10.2 L (12.0-16.0) g/dL Hct 30.3 L (37.0-47.0) % MCV 91.2 (82.0-92.0) fL MCH 30.7 (27.0-31.0) pg MCHC 33.6 (32.0-36.0) g/dL RDW 12.0 (11.5-14.5) % Plt Count 177 (150-300) 10^3/uL MPV 8.0 (7.4-10.4) fL Sodium 136 (136-145) mmol/L Potassium 3.5 (3.3-5.3) mmol/L Chloride 106 (98-115) mmol/L Carbon Dioxide 26.3 (21.0-32.0) mmol/L Anion Gap 7.2 (5-15) mmol/L BUN 9 (6-25) mg/dL Creatinine 0.78 (0.51-1.17) mg/dL Est Cr Clr Drug Dosing 80.89 mL/min Estimated GFR (MDRD) > 60 mL/min Glucose 89 mg/dL Lactic Acid 0.8 (0.4-2.0) mmol/L Calcium 8.3 L (8.7-10.3) mg/dL SRINIVASAN Results - Last 24 hrs: Microbiology 02/01/18 08:10 Aerobic Blood Culture - Preliminary Blood - Venous - Lab Draw NO GROWTH AFTER 2 DAYS Anaerobic Blood Culture - Preliminary NO GROWTH AFTER 2 DAYS 02/01/18 07:50 Aerobic Blood Culture - Preliminary Blood - Venous NO GROWTH AFTER 2 DAYS Anaerobic Blood Culture - Preliminary NO GROWTH AFTER 2 DAYS 02/01/18 01:00 Urine Culture - Final Urine, Clean Catch Med Orders - Current: Current Medications Acetaminophen (Tylenol) 650 mg PO Q4H PRN PRN Reason: Temperature Last Admin: 02/02/18 02:43 Dose: 650 mg Hydromorphone HCl (Dilaudid) 0.5 mg IVPUSH Q2H PRN PRN Reason: Pain (severe 7-10) Last Admin: 02/01/18 07:30 Dose: 0.5 mg Levofloxacin/Dextrose 500 mg/ (Premix) 100 mls @ 100 mls/hr IV Q24H ALLIE Last Admin: 02/03/18 07:49 Dose: 100 mls/hr Ondansetron HCl (Zofran) 4 mg IVPUSH Q4H PRN PRN Reason: Nausea/Vomiting Sodium Chloride (Syrex Flush) 5 ml FLUSH Q8HR PRN PRN Reason: Keep Vein Open Discontinued Medications Acetaminophen (Tylenol) 650 mg PO NOW ONE Stop: 01/31/18 23:57 Last Admin: 01/31/18 23:50 Dose: 650 mg Acetaminophen (Tylenol) Confirm Administered Dose 650 mg .ROUTE .STK-MED ONE Stop: 01/31/18 23:56 Last Admin: 02/01/18 00:09 Dose: Not Given Ceftriaxone Sodium (Rocephin) 1 gm IVPUSH ONETIME ONE Stop: 02/01/18 00:57 Last Admin: 02/01/18 03:29 Dose: 1 gm Hydromorphone HCl (Dilaudid) 0.5 mg IVPUSH Q2H PRN PRN Reason: Pain (severe 7-10) Last Admin: 02/01/18 03:42 Dose: 0.5 mg Hydromorphone HCl (Dilaudid) Confirm Administered Dose 1 mg .ROUTE .STK-MED ONE Stop: 02/01/18 03:42 Last Admin: 02/01/18 07:28 Dose: Not Given Hydromorphone HCl (Dilaudid) Confirm Administered Dose 1 mg .ROUTE .STK-MED ONE Stop: 02/01/18 07:26 Last Admin: 02/01/18 07:30 Dose: Not Given Sodium Chloride (Normal Saline) 1,000 mls @ 999 mls/hr IV .BOLUS ONE Stop: 02/01/18 00:56 Last Admin: 01/31/18 23:50 Dose: 999 mls/hr Sodium Chloride (Normal Saline) Confirm Administered Dose 1,000 mls @ as directed .ROUTE .STK-MED ONE Stop: 01/31/18 23:56 Last Admin: 02/01/18 00:08 Dose: Not Given Potassium Chloride/Dextrose/Sod Cl (D5 1/2 Ns W/ 20 Meq/L Kcl) 1,000 mls @ 125 mls/hr IV ASDIRECTED [facility] Last Admin: 02/02/18 06:23 Dose: 125 mls/hr Sodium Chloride (Normal Saline) 1,000 mls @ 999 mls/hr IV .BOLUS ONE Stop: 02/01/18 02:01 Last Admin: 02/01/18 03:30 Dose: 999 mls/hr Levofloxacin/Dextrose (Levaquin In D5w 500 Mg/100 Ml) Confirm Administered Dose 100 mls @ as directed IV .STK-MED ONE Stop: 02/01/18 08:51 Last Admin: 02/01/18 08:56 Dose: Not Given Sodium Chloride (Normal Saline) 1,000 mls @ 999 mls/hr IV .BOLUS ONE Stop: 02/01/18 12:44 Last Admin: 02/01/18 11:54 Dose: 999 mls/hr Ibuprofen (Motrin) 600 mg PO ONETIME ONE Stop: 02/01/18 08:06 Last Admin: 02/01/18 08:27 Dose: 600 mg Ibuprofen (Motrin) 600 mg PO ONETIME ONE Stop: 02/02/18 01:41 Last Admin: 02/02/18 01:58 Dose: 600 mg Iopamidol (Isovue-300 (61%)) 75 ml IV . DIRECTED PRN PRN Reason: FOR RADIOLOGY EXAM Last Admin: 08/15/18 01:08 Dose: 75 ml Morphine Sulfate (Morphine) 4 mg IVPUSH ONETIME ONE Stop: 02/01/18 00:34 Last Admin: 02/01/18 00:40 Dose: 4 mg Morphine Sulfate (Morphine) Confirm Administered Dose 4 mg .ROUTE .STK-MED ONE Stop: 02/01/18 00:37 Last Admin: 02/01/18 00:41 Dose: Not Given Ondansetron HCl (Zofran) 4 mg IVPUSH ONETIME ONE Stop: 02/01/18 00:25 Last Admin: 02/01/18 00:27 Dose: 4 mg Ondansetron HCl (Zofran) Confirm Administered Dose 4 mg .ROUTE .STK-MED ONE Stop: 02/01/18 00:27 Last Admin: 02/01/18 03:51 Dose: Not Given Ondansetron HCl (Zofran) 4 mg IVPUSH ONETIME ONE Stop: 02/01/18 08:05 Last Admin: 02/01/18 08:23 Dose: 4 mg Potassium Chloride (Klor-Con M20) 40 meq PO ONETIME ONE Stop: 02/01/18 08:31 Last Admin: 02/01/18 08:27 Dose: 40 meq Sodium Chloride (Normal Saline) 50 ml FLUSH ONETIME ONE Stop: 02/01/18 01:16 Last Admin: 02/01/18 01:08 Dose: 50 ml
== END 2018-02-03 10:10 | disposition home or self-care (01) | DRG 690 ==
LOC: KA.ED 23:39 → KA.MS 02-01 02:30 → UNDODISIN 02-03 10:10
PROVIDERS: ADMIT Physician Assistant Surgical; ATTEND Internal Medicine
DX: N10 Acute pyelonephritis (principal); K52.1 Toxic gastroenteritis and colitis; E87.6 Hypokalemia; F17.200 Nicotine dependence, unspecified, uncomplicated; F32.9 Major depressive disorder, single episode, unspecified; E66.9 Obesity, unspecified; Z68.30 Body mass index [BMI] 30.0-30.9, adult; T36.95XA Adverse effect of unspecified systemic antibiotic, initial encounter; Z79.899 Other long term (current) drug therapy
CPT/HCPCS: 36415; 74177; 80048; 80053; 81001; 83605; 84703; 85025; 85027; 87040; 87086; 87088; 87186; A9270-GY; J0696; J1170; J1956; J2270; J2405; J3480; J7030; Q9967

== ENCOUNTER 2019-07-13 09:48 | Emergency (ER) | payer BC, MEDICAID, OTHER, SELFPAY ==
[2019-07-13 10:00] VITALS: BP 123/67; PULSE 83
[2019-07-13] MEDS ORDERED: Sodium Chloride 0.9% 1,000 ML IV ONE (10:07)
[2019-07-13] MEDS ORDERED: Ondansetron 4 MG/2 ML SDV IVPUSH ONE (10:07)
--- NOTE | 2019-07-13 11:00 | EDM.PDOC ---
ED HPI GENERAL MEDICAL PROBLEM - General Chief Complaint: General Stated Complaint: vomiting Time Seen by Provider: 07/13/19 10:25 Source of Information: Reports: Patient History Limitations: Reports: No Limitations - History of Present Illness INITIAL COMMENTS - FREE TEXT/NARRATIVE: 38 YO WF presents to ER with intractable vomiting with associated diarrhea x 3 days. Pt reports approximately 3 episodes of diarrhea over the last 2 days, but hasn't had a bowel movement since yesterday. Pt reports she has been unable to eat or drink due to vomiting and states she feels very weak with mild dizziness. Pt with PSH or appendectomy, cholecystectomy and ovarian cyst removal in the past. Pt denies any PMH and isn't currently taking any home medications. Pt works in a [place] but denies any known exposures to C Diff. Pt denies hematochezia or hematemesis. Pt denies any abdominal pain or chest pain. Pt denies any recent URI symptoms but states she believes she's had a low grade fever. Duration: Day(s): (3) Location: Reports: Generalized Quality: Reports: Ache Severity: Mild Improves with: Reports: None Worsens with: Reports: Eating Associated Symptoms: Reports: Nausea/Vomiting, Weakness lower abdominal pain Pain Score (Numeric/FACES): 7 - Related Data Allergies Allergy/AdvReac Type Severity Reaction Status Date / Time No Known Drug Allergies Allergy Other Verified 07/13/19 10:00 Home Meds: Home Meds Ondansetron [Zofran ODT] 4 mg PO Q6H PRN #6 tab.dis 07/13/19 [Rx] Past Medical History HEENT History: Reports: None Respiratory History: Reports: Other (See Below) Other Respiratory History: smoker Gastrointestinal History: Reports: None Genitourinary History: Reports: None [employer] History: Reports: Dysfunctional Uterine Bleeding, , Spontaneous Other WHE[employer] History: 3 miscarriages. ovarian cysts Psychiatric History: Reports: Depression Endocrine/Metabolic History: Reports: Obesity/BMI 30+ Hematologic History: Reports: Anemia, Blood Transfusion(s) - Infectious Disease History Infectious Disease History: Reports: None - Past Surgical History Head Surgeries/Procedures: Reports: None HEENT Surgical History: Reports: Oral Surgery, Tonsillectomy GI Surgical History: Reports: Appendectomy, Cholecystectomy Female Surgical History: Reports: Section, Cystectomy, D&C Endocrine Surgical History: Reports: None Social & Family History - Family History Family Medical History: Noncontributory - Caffeine Use Caffeine Use: Reports: Soda Other Caffeine Use: ice tea and diet coke - Living Situation & Occupation Living situation: Reports: with Family Occupation: Employed ED ROS GENERAL - Review of Systems Review Of Systems: See Below Constitutional: Reports: Malaise, Decreased Appetite HEENT: Reports: No Symptoms Respiratory: Reports: No Symptoms Cardiovascular: Reports: No Symptoms Endocrine: Reports: No Symptoms GI/Abdominal: Reports: Diarrhea, Nausea, Vomiting. Denies: Black Stool, Bloody Stool, Hematemesis, Hematochezia, Melena : Reports: No Symptoms Musculoskeletal: Reports: No Symptoms Skin: Reports: No Symptoms Neurological: Reports: No Symptoms Psychiatric: Reports: No Symptoms Hematologic/Lymphatic: Reports: No Symptoms Immunologic: Reports: No Symptoms ED EXAM, GENERAL - Physical Exam Exam: See Below Exam Limited By: No Limitations General Appearance: Alert, WD/WN, No Apparent Distress Head: Atraumatic, Normocephalic Neck: Normal Inspection, Supple, Non-Tender, Full Range of Motion Respiratory/Chest: No Respiratory Distress, Lungs Clear, Normal Breath Sounds, No Accessory Muscle Use, Chest Non-Tender Cardiovascular: Normal Peripheral Pulses, Regular Rate, Rhythm, No Edema, No Gallop, No JVD, No Murmur, No Rub GI/Abdominal: Normal Bowel Sounds, Soft, No Organomegaly, No Distention, No Abnormal Bruit, No Mass, Tender (suprapubic) Back Exam: Normal Inspection, Full Range of Motion, NT Extremities: Normal Inspection, Normal Range of Motion, Non-Tender, Normal Capillary Refill, No Pedal Edema Neurological: Alert, Oriented, CN II-XII Intact, Normal Cognition, Normal Gait, Normal Reflexes, No Motor/Sensory Deficits Psychiatric: Normal Affect, Normal Mood Skin Exam: Warm, Dry, Intact, Normal Color, No Rash Lymphatic: No Adenopathy Course - Vital Signs Last Recorded V/S: Last Vital Signs Temp 36.4 C 07/13/19 09:53 Pulse 83 07/13/19 09:53 Resp 16 07/13/19 09:53 BP 123/67 07/13/19 09:53 Pulse Ox 96 07/13/19 09:53 - Orders/Labs/Meds Orders: Active Orders 24 hr Category Date Time Status EKG Documentation Completion [RC] ASDIRECTED Care 07/13/19 10:07 Active CDIFF TOXIN\AG GROUP [RM] Routine Lab 07/13/19 10:09 Ordered EKG 12 Lead [EK] Routine Ther 07/13/19 10:06 Ordered Labs: Laboratory Tests 07/13/19 07/13/19 07/13/19 Range/Units 10:10 10:20 10:20 WBC 11.71 H (5.00-10.00) 10^3/uL RBC 4.47 (3.80-5.50) 10^6/uL Hgb 14.0 (12.0-16.0) g/dL Hct 40.8 (37.0-47.0) % MCV 91.3 (82.0-92.0) fL MCH 31.3 H (27.0-31.0) pg MCHC 34.3 (32.0-36.0) g/dL RDW 12.2 (11.5-14.5) % Plt Count 222 (150-400) 10^3/uL MPV 10.6 H (7.4-10.4) fL Immature Gran % (Auto) 0.2 (0.0-5.0) % Neut % (Auto) 71.2 H (50.0-70.0) % Lymph % (Auto) 17.4 L (20.0-40.0) % [place]ink % (Auto) 7.4 (2.0-8.0) % Eos % (Auto) 3.4 H (1.0-3.0) % Baso % (Auto) 0.4 (0.0-1.0) % Immature Gran # (Auto) 0.02 (0.00-0.50) 10^3/uL Neut # (Auto) 8.33 H (2.50-7.00) 10^3/uL Lymph # (Auto) 2.04 (1.00-4.00) 10^3/uL Spink # (Auto) 0.87 H (0.10-0.80) 10^3/uL Eos # (Auto) 0.40 H (0.10-0.30) 10^3/uL Baso # (Auto) 0.05 (0.00-0.10) 10^3/uL Sodium 139 (136-145) mmol/L Potassium 3.7 (3.3-5.3) mmol/L Chloride 102 (98-115) mmol/L Carbon Dioxide 25.0 (21.0-32.0) mmol/L Anion Gap 15.7 H (5-15) mmol/L BUN 14 (6-25) mg/dL Creatinine 1.20 H (0.51-1.17) mg/dL Est Cr Clr Drug Dosing 52.07 mL/min Estimated GFR (MDRD) 50 mL/min Glucose 96 (75 - 99) mg/dL Calcium 8.3 L (8.7-10.3) mg/dL Total Bilirubin 0.3 (0.2-1.0) mg/dL AST 20 (15-37) U/L ALT 57 (12-78) U/L Alkaline Phosphatase 105 (46-116) IU/L Total Protein 7.0 (6.4-8.2) g/dL Albumin 3.63 (3.00-4.80) g/dL Lipase 150 (73-393) U/L HCG, Qual Negative (NEGATIVE) Specimen Type Urine cc Urine Color Yellow (YELLOW) Urine Appearance Slightly cloudy H (CLEAR) Urine pH 5.0 (5.0-9.0) Ur Specific [place] >= 1.030 (1.005-1.030) Urine Protein Negative (NEGATIVE) mg/dL Urine Glucose (UA) Negative (NEGATIVE) mg/dL Urine Ketones Trace H (NEGATIVE) mg/dL Urine Occult Blood Trace-intact H (NEGATIVE) Urine Nitrite Negative (NEGATIVE) Urine Bilirubin Negative (NEGATIVE) Urine Urobilinogen 0.2 (0.2-1.0) E.U./dL Ur Leukocyte Esterase Negative (NEGATIVE) Urine RBC 0-5 (0-5) /HPF Urine WBC 0-5 (0-5) /HPF Ur Epithelial Cells Moderate H /LPF Amorphous Sediment Few (0/HPF) /HPF Urine Bacteria Moderate H (NONE TO FEW) /HPF Meds: Medications Discontinued Medications Generic Name Dose Route Start Last Admin Trade Name Freq PRN Reason Stop Dose Admin Sodium Chloride 1,000 mls @ 999 mls/hr 07/13/19 10:07 Normal Saline IV 07/13/19 11:07 .BOLUS ONE Ondansetron HCl 4 mg 07/13/19 10:07 Zofran IVPUSH 07/13/19 10:08 ONETIME ONE - Radiology Interpretation Free Text/Narrative:: Pt reports nausea/vomiting improved after Zofran. Pt tolerated oral fluid challenge. Pt will follow up in clinic for further evaluation and treatment Departure - Departure Time of Disposition: 11:51 Disposition: Home, Self-Care 01 Condition: Good Clinical Impression: Viral gastroenteritis - Discharge Information Prescriptions: Ondansetron [Zofran ODT] 4 mg PO Q6H PRN #6 tab.dis PRN Reason: Vomiting Instructions: Viral Gastroenteritis, Adult Referrals: Purvi Somers PA-C [Primary Care Provider] - Forms: ED Department Discharge Additional Instructions: 1. discharge home 2. Zofran 4mg ODT #6 every 6 hours as needed for vomiting 3. clear liquid diet and progress as tolerated 4. follow up with PCP for further evaluation and treatment 5. return to ER if symptoms worsen Sepsis Event Note - Evaluation Sepsis Screening Result: No Definite Risk - Focused Exam Vital Signs: Vital Signs Temp Pulse Resp BP Pulse Ox 07/13/19 09:53 36.4 C 83 16 123/67 96 Date Exam was Performed: 07/13/19 Time Exam was Performed: 11:52 - My Orders Last 24 Hours: My Active Orders 07/13/19 10:06 EKG 12 Lead [EK] Routine 07/13/19 10:07 EKG Documentation Completion [RC] ASDIRECTED 07/13/19 10:09 CDIFF TOXIN\AG GROUP [RM] Routine - Assessment/Plan Last 24 Hours: My Active Orders 07/13/19 10:06 EKG 12 Lead [EK] Routine 07/13/19 10:07 EKG Documentation Completion [RC] ASDIRECTED 07/13/19 10:09 CDIFF TOXIN\AG GROUP [RM] Routine Assessment:: 1. viral gastroenteritis Plan: 1. discharge home 2. Zofran 4mg ODT #6 every 6 hours as needed for vomiting 3. clear liquid diet and progress as tolerated 4. follow up with PCP for further evaluation and treatment 5. return to ER if symptoms worsen
[2019-07-13 11:01] LABS: ANION GAP 15.7 mmol/L (5-15); CHLORIDE,CL 102 mmol/L (98-115); SODIUM,NA 139 mmol/L (136-145)
== END 2019-07-13 12:16 | disposition home or self-care (01) ==
LOC: KA.ED 09:48
DX: A08.4 Viral intestinal infection, unspecified (principal)
CPT/HCPCS: 80053; 81001; 83690; 84703; 85025; 93005; 96361; 96374; 99283; 99284-25; J2405; J7030